=== PATIENT | male | born 1970 | race Caucasian/White ===

== ENCOUNTER 2021-11-04 18:33 | Inpatient (IN) ==
[2021-11-04 21:40] LABS: Basophils # (auto) 0.05 K/uL (0-0.2); Basophils % (auto) 0.3 %; Eosinophils # (auto) 0.05 K/uL (0-0.50); Eosinophils % (auto) 0.3 %; Hematocrit (blood only) 42.3 % (40.1-51.0); Hemoglobin 14.5 g/dl (14.0-18.0); Immature Granulocytes # (auto) 0.09 K/uL (0.00-0.02); Immature Granulocytes % (auto) 0.6 %; Lymphocytes % (auto) 11.9 %; Mean Corpuscular Hemoglobin 27.7 pg (25.0-34.0); Mean Corpuscular Hgb Conc 34.3 g/dL (32.0-36.0); Mean Corpuscular Volume 80.7 fL (80.0-100.0); Mean Platelet Volume 10.7 fL (9.4-12.4); Monocytes # (auto) 1.37 K/uL (0.24-0.82); Neutrophils # (auto) 11.82 K/uL (1.4-6.5); Neutrophils % (auto) 77.9 %; Platelet Count 288 K/uL (130-400); RDW Coefficient of Variation 13.4 % (11.5-14.5); RDW Standard Deviation 39.3 fL (36.4-46.3); Red Blood Count 5.24 M/uL (4.63-6.08); White Blood Count 15.18 K/ul (4.8-10.8)
[2021-11-04 21:48] LABS: Albumin Level 4.4 gm/dl (3.4-5.0); BUN Creatinine Ratio 10.8 (10-20); Bilirubin,Total 0.8 mg/dl (0.2-1.0); Calcium 10.3 mg/dl (8.5-10.1); Creatinine Clr Calc Pharmacy 106.2 ml/min; Est GFR (African American) 109.8 ml/min; Est GFR (Non-African American) 94.7 ml/min; Globulin 4.6 gm/dl (2.5-4.0); Potassium 4.6 mmol/L (3.5-5.1)
[2021-11-04] MEDS ORDERED: HYDROmorphone INJ 1 MG/ML SYRINGE IV STA (23:57)
[2021-11-04] MEDS ORDERED: SODIUM CHLORIDE 0.9% 1000ML 1,000 ML IV ONE (23:59)
[2021-11-05] MEDS ORDERED: ONDANSETRON INJ 2 MG/ML 2 ML VIAL IV STA (00:04)
[2021-11-05] MEDS ORDERED: VANCOMYCIN HCL 1,750 MG in SODIUM CHLORIDE 0.9% 500 ML IV ONE (00:06)
[2021-11-05] MEDS ORDERED: VANCOMYCIN CONSULT ACTIVE PRN (00:06)
--- NOTE | 2021-11-05 01:23 | History & Physical Report ---
Date of Service November 05, 2021 Assessment & Plan (1) Cellulitis of lip: Plan: Worsening since Wednesday despite being on clindamycin. - Vanc/Zosyn - Follow blood cultures - Urgent u/s of upper lip to check for abscess - OMFS consulted - NPO - Pain control (2) Diabetes: Plan: At home takes Novolog 12 - 14 units with breakfast and dinner. Had previously been on Lantus 22 units HS, but stopped that about 1 month ago. - Lantus 10 units SQ BID - Sliding scale insulin - A1c ordered (3) Hypertension: Plan: - Continue home metoprolol History of Present Illness Primary Care Provider: Ash Huggins 51yo M w/ hx of DM comes in with lip cellulitis. Had small pimple that he popped. On Wednesday, lip became more swollen and red. [facility] started him on clinda with worsening. Saw his dentist/OMFS physician who took culture but d idn't change antibiotic and has not heard back from that result. Lip still getting worse, so came to the hospital. Has been trying ice, compresses, etc without improvement. Allergies Allergy/AdvReac Type Severity Reaction Status Date / Time hydrocodone Allergy Mild Unverified 11/29/12 01:21 Home Medications Medication Instructions Recorded Confirmed Type METFORMIN HCL (GLUCOPHAGE) 1,000 mg PO BID #0 tabs 12/02/12 History ASPIRIN (ASPIRIN EC) 81 mg PO DAILY ##0 06/21/13 History Metoprolol Tartrate (Lopressor) 25 mg PO BID #0 tabs 06/21/13 History (Lopressor) Insulin Detemir (Levemir Flexpen) 56 unit subcut HS ##0 01/24/14 History Past Med/Surg History Medical History (Updated 11/05/21 @ 01:21 by Earnest Hernandez MD) Diabetes Hypertension Social History Smoking Status: Never smoker Feels Safe at Home: Yes Review of Systems Review of Systems: All systems reviewed & are unremarkable except as noted in HPI & below Physical Exam Constitutional: WD/WN, vitals as above Eyes: EOM intact bilaterally; no conjunctival abnormality ENMT: external ear and nose normal, oropharynx normal Hugely swollen upper lip with some fluctuance on the left side Neck: trachea midline, no thyromegaly normal visual inspection Respiratory: normal respiratory effort, lungs clear to auscultation no respiratory distress Cardiovascular: RRR, no murmur, no edema Gastrointestinal (Abdomen): Inspection/Auscultation: abdomen normal to inspection; abdomen not distended Musculoskeletal: no cyanosis or clubbing, extremities motor strength 5/5 Skin: no rashes, warm and dry Neurologic: moves all extremities and awake Psychiatric: Orientation: alert, oriented to person and cooperative Results & Data Results & [facility] ([facility] Vital Signs (Past 12 Hours) Vital Signs Temp Pulse Pulse Resp BP BP Pulse Ox 11/05/21 00:42 107 H 18 166/97 H 96 11/04/21 23:38 120 H 20 188/98 H 100 11/04/21 18:51 36.8 C 117 H 18 144/82 H 99 O2 Del Method 11/05/21 00:42 Room Air 11/04/21 23:38 Room Air 11/04/21 18:51 Room Air Code Status & VTE Plan VTE Prophylaxis Plan VTE Prophylaxis will be ordered: Yes PG Care Time/CCT Total # of Minutes Spent Total Time Spent with Patient: Total time spent is greater than 50% in coordination of care (as documented) at patient's floor/unit and/or counseling patient: Coding Level of Care Code 63397 Initial Inpt Care Lvl 3 Diagnoses Cellulitis of lip K13.0 Diabetes E11.9 Hypertension I10
[2021-11-05] MEDS ORDERED: DEXTROSE 50% 50 ML SYRINGE IV PRN (03:19)
[2021-11-05] MEDS ORDERED: GLUCOSE 40% GEL 15 GM TUBE PO PRN (03:19)
[2021-11-05] MEDS ORDERED: ONDANSETRON INJ 2 MG/ML 2 ML VIAL IV PRN (03:19)
[2021-11-05] MEDS ORDERED: GLUCAGON FOR INJ 1 MG VIAL SQ PRN (03:19)
[2021-11-05] MEDS ORDERED: CARBOHYDRATES FOR HYPOGLYCEMIA PO PRN (03:19)
[2021-11-05] MEDS ORDERED: GLUCOSE 10 TAB/TUBE PO PRN (03:19)
[2021-11-05] MEDS ORDERED: PIPERACILLIN/TAZOBACTAM 4.5 GM/120 ML BAG IV STA (03:31)
[2021-11-05] MEDS: LACTATED RINGER'S 1,000 ML IV SCH ×2 (03:38→12:12)
[2021-11-05] MEDS: HYDROmorphone INJ 0.5 MG/0.5 ML SYR IV PRN ×4 (03:38→20:49)
--- NOTE | 2021-11-05 06:34 | Pharmacy Report ---
Pharmacy Vanc AUC Short Note - Date of Service November 05, 2021 - Assessment & Plan Assessment 51 year old M receiving VANCOMYCIN for treatment of cellulitis of lip, pharmacy to dose vancomycin. Pt is also ordered Zosyn. Pertinent microbiologic data includes: BLCXs pending Plan Vancomycin * AUC/TSERING is the preferred PK/PD target for vancomycin * AUC guided dosing is effective and associated with decreased risk of nephrotoxicity compared to traditional trough targets * 1750mg load x 1 given overnight * Maint dose 1250mg IV Q 12 hrs is predicted to achieve target AUC/TSERING of 400- 600 mg/L.hr and may be associated with a 13 % risk of nephrotoxicity * Will check level in 24-48 hrs if therapy to continue Pharmacy will continue to follow and will adjust dose/frequency as necessary. Thank you.
--- NOTE | 2021-11-05 07:00 | Ultrasound Report ---
US soft tissue head and neck CLINICAL HISTORY: Upper lip; look for abscess COMPARISON STUDY: No previous studies for comparison. TECHNIQUE: Sonography of the upper lip at site of swelling was performed. FINDINGS: There is a 3.5 x 1.4 x 1 cm complex hypoechoic suspected collection of the upper lip with w ithout internal vascularity. There is peripheral hypervascularity. No additional fluid collections ar e identified. IMPRESSION: 3.5 x 1.4 x 1 cm complex hypoechoic focus within the upper lip. This favors a developing abscess. ACT 112: Negative or not required by law. Electronically signed by: Sánchez Ruiz M.D. 11/05/2021 6:58 AM
[2021-11-05 07:11] LABS: Hematocrit (blood only) 36.9 % (40.1-51.0); Hemoglobin 12.4 g/dl (14.0-18.0); Mean Corpuscular Hemoglobin 27.3 pg (25.0-34.0); Mean Corpuscular Hgb Conc 33.6 g/dL (32.0-36.0); Mean Corpuscular Volume 81.3 fL (80.0-100.0); Mean Platelet Volume 10.1 fL (9.4-12.4); Platelet Count 237 K/uL (130-400); RDW Coefficient of Variation 13.2 % (11.5-14.5); Red Blood Count 4.54 M/uL (4.63-6.08); White Blood Count 13.08 K/ul (4.8-10.8)
[2021-11-05 07:28] LABS: BUN Creatinine Ratio 13.3 (10-20); Creatinine Clr Calc Pharmacy 131.7 ml/min; Est GFR (African American) 123.1 ml/min; Est GFR (Non-African American) 106.2 ml/min; Magnesium 1.6 mg/dl (1.7-2.4)
[2021-11-05 07:49] LABS: Estimated Average Glucose 243 mg/dl; Hemoglobin A1C 10.1 % (4.5-5.6)
--- NOTE | 2021-11-05 08:11 | Emergency Department Note ---
Impression & Plan Acute hyponatremia, Hyperglycemia due to diabetes mellitus, Cellulitis of lip [facility] Provider Note NAME: ART BRUSH AGE: 51 SEX: M ARRIVES VIA: Walk-In INFORMANT: Patient and his brother ED PROVIDER(S): Idalmis Portillo DO CHIEF COMPLAINT: Abscess/edema to the upper lip PLAN: Disposition: Admit to the [facility] Condition: Stable MEDICAL DECISION MAKING: This is a 51-year-old male patient who is a diabetic who presents to the emergency department with significant edema to the upper lip. The patient has been treated with clindamycin but is failing outpatient treatment. He has severe pain to the upper lip. He has significant hyperglycemia and hyponatremia. He will require inpatient correction of the hyponatremia and treatment of the pain. I have discussed the case [facility] and they will evaluate for further management. Triage Nursing notes reviewed and agree with them. Additional history obtained from the patient's brother who is at the bedside Prior medical records reviewed Vital Signs: reviewed and remarkable for hypertension and tachycardia Differential diagnosis: Cellulitis of the lip; facial abscess; hyperglycemia; MRSA infection; failure of outpatient treatment ER treatment provided: IV vancomycin IV Dilaudid IV Zofran and IV normal saline Diagnostics interpreted by me: Cardiac Monitoring: Sinus tachycardia at 108 Laboratory studies: See below HPI: 51/M arrives for evaluation of swollen upper lip. Patient developed a pimple on his upper lip 5 days ago. He tried to pop it but it became infected. The whole upper lip began to swell. He was seen at [facility] and was prescribed clindamycin which did not seem to be helping. He followed up with a plastic surgeon who cultured the wound and he was awaiting the cultures and sensitivities. Patient has history of MRSA and was concerned this may be causing his infection. ROS: See above HPI for pertinent positives & negatives. A total of 10 systems reviewed and were otherwise negative. PAST MEDICAL HISTORY:Previous MRSA infections. PAST SURGICAL HISTORY:See Below FAMILY HISTORY:See Below SOCIAL HISTORY:See Below HOME MEDICATIONS:See list ALLERGIES:None according to the patient VITALS:See Below PHYSICAL EXAMINATION: HEENT: Head - normocephalic and atraumatic. Pupils are equal, round, and reactive to light. Extraocular eye muscles are intact, and sclera are anicteric. Nose - moist nasal mucosa without discharge. Mouth - moist buccal mucosa. Oropharynx is nonerythematous and there is no tonsillar exudate or edema noted. Patient has significant edema to the upper lip with a scabbed over area in the middle of the upper lip. Neck: Supple; no JVD, nuchal rigidity, cervical lymphadenopathy. Heart: Tachycardic rate and rhythm. There is a normal S1 and S2 with no murmurs, clicks, or gallops appreciated. Lungs: Clear to auscultation bilaterally with no wheezes, rales, or rhonchi. Abdomen: Soft, completely nontender, nondistended, with good bowel sounds. There are no palpable pulsatile masses or hepatosplenomegaly. There is no guarding, rigidity, or rebound noted. Extremities: No evidence of cyanosis, clubbing, or edema. There are easily palpable peripheral pulses. Skin: warm and dry with good turgor and no rashes. ED COURSE: Times/Reassessments: Patient was evaluated and had a complete history and physical. An IV lock was initiated and labs are drawn as above. The patient was treated with IV Toradol, Dilaudid, and Zofran. An order was placed for c ontinuous cardiac monitoring. The patient was in a sinus tachycardia at 108. Blood cultures were obtained. Patient was started on IV vancomycin drip. Patient was bolused with IV normal saline solution. I discussed the case with the [facility] Hospitalist. Idalmis Portillo DO Past Med/Surg History Medical History Diabetes Hypertension Social History Smoking Status: Former smoker Hx Alcohol Use: Yes Hx Substance Use: No Preferred Language: Zambian Communication Ability: Effective Mental Retardation Aide Required: No Beliefs That Will Affect Care: Voodoo Voodoo Beliefs: sikhism Current Living Situation: Other Current Living Situation Comment: girlfriend Feels Safe at Home: Yes Safety Concerns: Feels Safe At This Time Assistive Devices: None Allergies Allergies Allergy/AdvReac Type Severity Reaction Status Date / Time hydrocodone Allergy Mild Unverified 11/29/12 01:21 Home Meds Home Medications Medication Instructions Recorded Confirmed aspirin 81 mg tablet,delayed 81 mg PO DAILY 11/05/21 11/05/21 release clindamycin HCl 300 mg capsule 300 mg PO Q6 11/05/21 11/05/21 glimepiride 4 mg tablet 4 mg PO QAM 11/05/21 11/05/21 hydrocodone 10 mg-acetaminophen 1 tab PO QID PRN Pain 11/05/21 11/05/21 325 mg tablet insulin glargine 100 unit/mL (3 20 unit subcut HS 11/05/21 11/05/21 mL) subcutaneous pen (Lantus Solostar U-100 Insulin) insulin lispro 100 unit/mL See Rx Instructions .Route .COMPLEX 11/05/21 11/05/21 subcutaneous pen (Humalog KwikPen (U-100) Insulin) lisinopril 10 1 tab PO DAILY 11/05/21 11/05/21 mg-hydrochlorothiazide 12.5 mg tablet metformin 1,000 mg tablet 1,000 mg PO BIDM 11/05/21 11/05/21 omeprazole 20 mg capsule,delayed 20 mg PO DAILY 11/05/21 11/05/21 release rosuvastatin 10 mg tablet 10 mg PO DAILY 11/05/21 11/05/21 Results & Data (ED) Vital Signs Vital Signs - 24 hr 11/04/21 18:51 11/04/21 23:38 11/05/21 00:42 Temperature 36.8 C Temperature Source Temporal Artery Scan Pulse Rate 117 H Pulse Rate [Finger] 120 H 107 H Respiratory Rate 18 20 18 Respiratory Effort / Characteristics Non-Labored Respiratory Depth Normal Respiratory Pattern Regular Blood Pressure 144/82 H Blood Pressure [Right Arm] 188/98 H 166/97 H Blood Pressure Mean 102 Blood Pressure Mean [Right Arm] 128 120 Blood Pressure Position [Right Arm] Lying Pulse Oximetry 99 100 96 Oxygen Delivery Method Room Air Room Air Room Air Sepsis Recent Fever Within 48 Hours No Sepsis New/Unexplained Change in Mental Status No Sepsis Action Taken by Nursing No Action Required Laboratory Data Result diagrams: 11/05/21 07:00 11/05/21 07:00 Lab Results 11/04/21 11/04/21 11/05/21 Range/Units 21:11 21:11 00:30 WBC 15.18 H (4.8-10.8) K/ul RBC 5.24 (4.63-6.08) M/uL Hgb 14.5 (14.0-18.0) g/dl Hct 42.3 (40.1-51.0) % MCV 80.7 (80.0-100.0) fL MCH 27.7 (25.0-34.0) pg MCHC 34.3 (32.0-36.0) g/dL RDW Std Deviation 39.3 (36.4-46.3) fL RDW Coeff of Guillermo 13.4 (11.5-14.5) % Plt Count 288 (130-400) K/uL MPV 10.7 (9.4-12.4) fL Immature Gran % (Auto) 0.6 % Neut % (Auto) 77.9 % Lymph % (Auto) 11.9 % [place] % (Auto) 9.0 % Eos % (Auto) 0.3 % Baso % (Auto) 0.3 % Neut # (Auto) 11.82 H (1.4-6.5) K/uL Lymph # (Auto) 1.80 (1.2-3.4) K/uL [place] # (Auto) 1.37 H (0.24-0.82) K/uL Eos # (Auto) 0.05 (0-0.50) K/uL Baso # (Auto) 0.05 (0-0.2) K/uL Immature Gran # (Auto) 0.09 H (0.00-0.02) K/uL Sodium 127 L (136-145) mmol/L Potassium 4.6 (3.5-5.1) mmol/L Chloride 91 L (98-107) mmol/L Carbon Dioxide 25 (21-32) mmol/L Anion Gap 11 (3-11) BUN 10 (6-23) mg/dl Creatinine 0.93 (0.6-1.4) mg/dl Est Cr Clr Drug Dosing 106.2 ml/min Est GFR ( Amer) 109.8 ml/min Est GFR (Non-Af Amer) 94.7 ml/min BUN/Creatinine Ratio 10.8 (10-20) Glucose 375 H* (70-99(Fasting)) mg/dl Lactate 1.4 (0.4-2.0) mmol/L Calcium 10.3 H (8.5-10.1) mg/dl Total Bilirubin 0.8 (0.2-1.0) mg/dl AST 8 L (13-39) U/L ALT 10 (7-52) U/L Alkaline Phosphatase 88 (34-104) U/L Total Protein 9.0 H (6.0-8.3) gm/dl Albumin 4.4 (3.4-5.0) gm/dl Globulin 4.6 H (2.5-4.0) gm/dl Albumin/Globulin Ratio 1.0 (0.9-2) SARS-CoV-2, RNA, NAAT (NEGATIVE) 11/05/21 Range/Units 00:30 WBC (4.8-10.8) K/ul RBC (4.63-6.08) M/uL Hgb (14.0-18.0) g/dl Hct (40.1-51.0) % MCV (80.0-100.0) fL MCH (25.0-34.0) pg MCHC (32.0-36.0) g/dL RDW Std Deviation (36.4-46.3) fL RDW Coeff of Guillermo (11.5-14.5) % Plt Count (130-400) K/uL MPV (9.4-12.4) fL Immature Gran % (Auto) % Neut % (Auto) % Lymph % (Auto) % [place] % (Auto) % Eos % (Auto) % Baso % (Auto) % Neut # (Auto) (1.4-6.5) K/uL Lymph # (Auto) (1.2-3.4) K/uL [place] # (Auto) (0.24-0.82) K/uL Eos # (Auto) (0-0.50) K/uL Baso # (Auto) (0-0.2) K/uL Immature Gran # (Auto) (0.00-0.02) K/uL Sodium (136-145) mmol/L Potassium (3.5-5.1) mmol/L Chloride (98-107) mmol/L Carbon Dioxide (21-32) mmol/L Anion Gap (3-11) BUN (6-23) mg/dl Creatinine (0.6-1.4) mg/dl Est Cr Clr Drug Dosing ml/min Est GFR ( Amer) ml/min Est GFR (Non-Af Amer) ml/min BUN/Creatinine Ratio (10-20) Glucose (70-99(Fasting)) mg/dl Lactate (0.4-2.0) mmol/L Calcium (8.5-10.1) mg/dl Total Bilirubin (0.2-1.0) mg/dl AST (13-39) U/L ALT (7-52) U/L Alkaline Phosphatase (34-104) U/L Total Protein (6.0-8.3) gm/dl Albumin (3.4-5.0) gm/dl Globulin (2.5-4.0) gm/dl Albumin/Globulin Ratio (0.9-2) SARS-CoV-2, RNA, NAAT NEGATIVE (NEGATIVE) Administered Medications Hydromorphone HCl (Hydromorphone Inj 0.5 Mg/0.5 Ml Syr) 0.5 mg IV Q4H PRN PRN Reason: Pain Stop: 11/19/21 03:18 Last Admin: 11/05/21 13:35 Dose: 0.5 mg Documented By: Admin: 11/05/21 08:44 Dose: 0.5 mg Documented By: Admin: 11/05/21 03:38 Dose: 0.5 mg Documented By: ELLE Piperacillin Sod/Tazobactam (Sod 3.375 gm/ Dextrose) 115 mls @ 28.75 mls/hr IV Q8H [facility]; Protocol Stop: 11/12/21 07:59 Last Admin: 11/05/21 15:35 Dose: 28.8 mls/hr Documented By: Infusion: 11/05/21 13:20 Dose: 0 mls/hr Documented By: Admin: 11/05/21 09:20 Dose: 28.8 mls/hr Documented By: CONNIE Vancomycin HCl 1,250 mg/ (Sodium Chloride) 275 mls @ 200 mls/hr IV Q12H KANE Stop: 11/12/21 07:59 Last Infusion: 11/05/21 10:41 Dose: 0 mls/hr Documented By: Admin: 11/05/21 09:15 Dose: 200 mls/hr Documented By: CONNIE Insulin Aspart (Insulin Aspart Per Unit) 0 units SC ACHS KANE Stop: 12/05/21 07:29 Last Admin: 11/05/21 13:32 Dose: 9 units Documented By: EVITA Co-signed By: MANDI Admin: 11/05/21 09:30 Dose: 5 units Documented By: CONNIE Co-signed By: ARMINDA Insulin Glargine (Lantus Per Unit Charge) 10 units SQ BID KANE Stop: 12/05/21 08:59 Last Admin: 11/05/21 09:31 Dose: 10 units Documented By: CONNIE Co-signed By: ARMINDA Metoprolol Tartrate (Metoprolol Tartrate 25 Mg Tab) 25 mg PO BID KANE Stop: 12/05/21 08:59 Last Admin: 11/05/21 10:48 Dose: 25 mg Documented By: CONNIE Discontinued Medications Hydromorphone HCl (Hydromorphone Inj 1 Mg/Ml Syringe) 1 mg IV NOW STA Stop: 11/04/21 23:58 Last Admin: 11/05/21 00:27 Dose: 1 mg Documented By: ELLE Sodium Chloride (Nss 1000ml) 1,000 mls @ 999 mls/hr IV .Q1H1M ONE Stop: 11/05/21 00:59 Last Infusion: 11/05/21 01:38 Dose: 0 mls/hr Documented By: Admin: 11/05/21 00:28 Dose: 999 mls/hr Documented By: ELLE Vancomycin HCl 1,750 mg/ (Sodium Chloride) 535 mls @ 200 mls/hr IV NOW ONE Stop: 11/05/21 02:46 Last Infusion: 11/05/21 03:29 Dose: 0 mls/hr Documented By: Admin: 11/05/21 00:36 Dose: 200 mls/hr Documented By: ELLE Piperacillin Sod/Tazobactam Sod (Zosyn) 4.5 gm in 120 mls @ 240 mls/hr IV NOW STA; Protocol Stop: 11/05/21 04:00 Last Infusion: 11/05/21 04:16 Dose: 0 mls/hr Documented By: Admin: 11/05/21 03:38 Dose: 240 mls/hr Documented By: HH Lactated Ringer's (Lr) 1,000 mls @ 125 mls/hr IV .Q8H KANE Stop: 12/05/21 03:18 Last Infusion: 11/05/21 16:21 Dose: 0 mls/hr Documented By: Admin: 11/05/21 12:12 Dose: 125 mls/hr Documented By: Infusion: 11/05/21 11:39 Dose: 0 mls/hr Documented By: Admin: 11/05/21 03:38 Dose: 125 mls/hr Documented By: ELLE Magnesium Sulfate/Dextrose (Magnesium Sulfate / D5w) 1 gm in 100 mls @ 50 mls/hr IV 0915 ONE Stop: 11/05/21 11:14 Last Infusion: 11/05/21 12:51 Dose: 0 mls/hr Documented By: Admin: 11/05/21 10:48 Dose: 50 mls/hr Documented By: CONNIE Ondansetron HCl (Ondansetron Inj 2 Mg/Ml 2 Ml Vial) 4 mg IV NOW STA Stop: 11/05/21 00:05 Last Admin: 11/05/21 00:28 Dose: 4 mg Documented By: ELLE Discharge Plan Visit Data Chief Complaint: Facial Injury/Pain Stated Complaint: LIPS MAJORLY SWOLLEN ED Provider: Idalmis Portillo Discharge Problem: Acute hyponatremia, Hyperglycemia due to diabetes mellitus, Cellulitis of lip Discharge Instructions Interventions: ED Discharge Assessment Last Done: 11/05/21 03:30
[2021-11-05] MEDS: VANCOMYCIN HCL 1,250 MG in SODIUM CHLORIDE 0.9% 250 ML IV SCH ×2 (09:15→20:50)
[2021-11-05] MEDS ORDERED: MAGNESIUM SULFATE / D5W 1 GM/100 ML BAG IV ONE (09:15)
[2021-11-05] MEDS: PIPERACILLIN/TAZOBACTAM 3.375 GM in DEXTROSE 5% 100 ML IV SCH ×2 (09:20→15:35)
[2021-11-05] MEDS: INSULIN ASPART PER UNIT SC SCH ×4 (09:30→21:13)
[2021-11-05] MEDS: LANTUS PER UNIT CHARGE SQ SCH ×2 (09:31→21:13)
[2021-11-05] MEDS: METOPROLOL TARTRATE 25 MG TAB PO SCH ×2 (10:48→20:50)
--- NOTE | 2021-11-05 14:25 | Oral/Maxillofacial Consult ---
Date of Consultation November 05, 2021 Assessment & Plan (1) Facial abscess: (2) Cellulitis of lip: History of Present Illness Reason for Consultation: lip infection ? MRSA Attending Physician: Boni Whitten MD History of Present Illness K12.2 CPT 54367 Oral Maxillofacial Surgery Exam Present Complaint: Had mass pimple upper lip--he tried to drain - now lip very hard and swollen--H/O MRSA Symptoms have been ongoing since Wednesday--saw [facility] in [place] [facility] taken placed on Clindamycin --no improvement --presented to [facility] ER. HPI: 51/M arrives for evaluation of swollen upper lip. Patient developed a pimple on his upper lip 5 days ago. He tried to pop it but it became infected. The whole upper lip began to swell. He was seen at [facility] and was prescribed clindamycin which did not seem to be helping. He followed up with a plastic surgeon who cultured the wound and he was awaiting the cultures and sensitivities. Patient has history of MRSA and was concerned this may be causing his infection. Oral Exam: Finding- Grossly swollen indurated upper lip, no drainage, not fluctuant Painful No other oral issues Imaging: US soft tissue head and neck CLINICAL HISTORY: Upper lip; look for abscess TECHNIQUE: Sonography of the upper lip at site of swelling was performed. FINDINGS: There is a 3.5 x 1.4 x 1 cm complex hypoechoic suspected collection of the upper lip with without internal vascularity. There is peripheral hypervascularity. No additional fluid collections are identified. IMPRESSION: 3.5 x 1.4 x 1 cm complex hypoechoic focus within the upper lip. Thi s favors a developing abscess. Soft tissue: Grossly swollen, indurated upper lip floor of the mouth, tongue, hard/soft palate, posterior pharyngeal area all with in normal limits, Oral Care: Overall oral care is good Occlusion: Class I missing a few teeth TMJ exam: No pop, clicking, pain, good ROM, No history of TMJ injury or dysfunction Periodontal exam: Healthy gingival tissue without evidence of periodontal pathology. Head/Neck exam: Neck is supple, FROM, Able to extend and flex neck w/o difficulty, no masses, no abnormalities, no airway issues, no evidence of sleep apnea. Treatment Plan: Admit for IV antibiotics, heat, for I&D , NPO midnight to night OR PM Set up with general anesthesia in hospitall due to complexity of the procedure I reviewed the treatment plan and consent with the patient Understanding was expressed. Time was given for questions regarding the surgery, risks and post op care. Discussed alternative to treatment--procedure as planned, Do not do surgery Risks discussed: Bleeding,Pain,swelling,infection,delayed healing, nerve injury to face,lips,tongue,chin area which could be permanent (rare). Further treatment if MRSA infection. Scaring and recurrence Home care reviewed: Oral and Lip care, rinsing, follow up care with Dr Barry. diet=[id number] dental. Discussed activity level, driving/work while on Rx pain Meds. Surgery to be set up afternoon Allergies Allergy/AdvReac Type Severity Reaction Status Date / Time hydrocodone Allergy Mild Unverified 11/29/12 01:21 Home Medications Medication Instructions Recorded Confirmed Type aspirin 81 mg tablet,delayed 81 mg PO DAILY 11/05/21 11/05/21 History release clindamycin HCl 300 mg capsule 300 mg PO Q6 11/05/21 11/05/21 History glimepiride 4 mg tablet 4 mg PO QAM 11/05/21 11/05/21 History hydrocodone 10 mg-acetaminophen 1 tab PO QID PRN Pain 11/05/21 11/05/21 History 325 mg tablet insulin glargine 100 unit/mL (3 20 unit subcut HS 11/05/21 11/05/21 History mL) subcutaneous pen (Lantus Solostar U-100 Insulin) insulin lispro 100 unit/mL See Rx Instructions .Route .COMPLEX 11/05/21 11/05/21 History subcutaneous pen (Humalog KwikPen (U-100) Insulin) lisinopril 10 1 tab PO DAILY 11/05/21 11/05/21 History mg-hydrochlorothiazide 12.5 mg tablet metformin 1,000 mg tablet 1,000 mg PO BIDM 11/05/21 11/05/21 History omeprazole 20 mg capsule,delayed 20 mg PO DAILY 11/05/21 11/05/21 History release rosuvastatin 10 mg tablet 10 mg PO DAILY 11/05/21 11/05/21 History Patient History Medical History (Updated 11/05/21 @ 08:16 by Idalmis Portillo DO) Diabetes Hypertension Social History Smoking Status: Former smoker Hx Alcohol Use: Yes Hx Substance Use: No Preferred Language: Divehi Communication Ability: Effective Metallurgical Lab Technician Required: No Beliefs That Will Affect Care: Yarsani Yarsani Beliefs: temple Current Living Situation: Other Current Living Situation Comment: girlfriend Feels Safe at Home: Yes Safety Concerns: Feels Safe At This Time Assistive Devices: None Results & Data ([facility]) Vital Signs (Past 12 Hours) Vital Signs Temp Pulse Resp BP Pulse Ox O2 Del Method 11/05/21 06:49 104 H 17 164/69 H 96 Room Air 11/05/21 03:47 37.0 C 107 H 18 183/99 H 96 Room Air 11/05/21 02:33 105 H 17 155/69 H 95 Room Air PG Care Time/CCT Total # of Minutes Spent Total Time Spent with Patient: Total time spent is greater than 50% in coordination of care (as documented) at patient's floor/unit and/or counseling patient: Coding Level of Care Code 66757 Inpt Consult Level 3 Diagnoses Facial abscess L02.01 Cellulitis of lip K13.0
--- NOTE | 2021-11-05 15:57 | Hospitalist Progress Note ---
Date of Service November 05, 2021 Assessment & Plan (1) Cellulitis of lip: Plan: Worsening since Wednesday despite being on clindamycin. - Empirically on Vanc/Zosyn - Blood cultures collected and pending - U/S of upper lip appears consistent with developing abscess - OMFS consulted-appreciate assistance, plan for I&D tomorrow - NPO but diet ordered for today, will be NPO at midnight tonight - Pain control (2) Diabetes: Plan: At home takes Novolog 12 - 14 units with breakfast and dinner. Had previously been on Lantus 22 units HS, but stopped that about 1 month ago. - Lantus 10 units SQ BID - Sliding scale insulin, pharmacy tightened CF for better control - A1c ordered-elevated at 10.1% - Suspect his issue is dietary noncompliance (3) Hypertension: Plan: - Continue home metoprolol Plan Plan as outlined above. For procedure tomorrow. Follow culture data and tailor abx therapy accordingly. AM labs. Change fluids to NSS at 100 ml/hr d/t Na of 129. Magnesium supplemented. Plan to be d/w Dr. Whitten. Admission and Anticipated Discharge Date Admission Date: November 05, 2021 Subjective Patient seen on daily rounds today. He reports c/o headache and facial pain which seems only mildly controlled. He denies fever, chills chest pain, or dyspnea. He did not have tylenol ordered. He was seen by [facility] and plan is for I&D tomorrow. Review of Systems Review of Systems: All systems reviewed and are unremarkable except as noted in HPI and below. Denies fever, chills, fatigue, nasal congestion, sore throat, cough, chest pain, shortness of breath, palpitations, orthopnea, PND, abdominal pain, n/v/d, constipation, dysuria, hematuria, frequency, back pain, joint pain or swelling, easy bruising or bleeding. Physical Exam Physical Exam: GENERAL: 51 yo Well-developed, well-nourished WM. NAD. MOUTH: significant swelling of upper lip, no obvious opening or active drainage LUNGS: Clear to auscultation bilaterally. No accessory muscle use. No W/R/R. CARDIOVASCULAR: Regular rate and rhythm. ABDOMEN: Soft, non-tender and non-distended. BS normoactive x 4 quad. EXTREMITIES: No edema. Non-tender. Peripheral pulses +2/4. NEUROLOGIC: A&O x3. Nonfocal PSYCHIATRIC: Cooperative. Appropriate mood and affect. SKIN: Warm, dry, intact. Results & Data Results & Data ([facility]) Vital Signs (Past 12 Hours) Vital Signs Pulse Resp BP Pulse Ox O2 Del Method 11/05/21 15:00 104 H 19 165/90 H 94 Room Air 11/05/21 06:49 104 H 17 164/69 H 96 Room Air Laboratory Results 11/05/21 07:00 11/05/21 07:00 Diagnostic Findings Head/Neck Ultrasound 11/05/21 03:19 US soft tissue head and neck CLINICAL HISTORY: Upper lip; look for abscess COMPARISON STUDY: No previous studies for comparison. TECHNIQUE: Sonography of the upper lip at site of swelling was performed. FINDINGS: There is a 3.5 x 1.4 x 1 cm complex hypoechoic suspected collection of the upper lip with without internal vascularity. There is peripheral hypervascularity. No additional fluid collections are identified. IMPRESSION: 3.5 x 1.4 x 1 cm complex hypoechoic focus within the upper lip. This favors a developing abscess. ACT 112: Negative or not required by law. Electronically signed by: Sánchez Ruiz M.D. 11/05/2021 6:58 AM PG Care Time/CCT Total # of Minutes Spent Total Time Spent with Patient: Total time spent is greater than 50% in coordination of care (as documented) at patient's floor/unit and/or counseling patient: Coding Level of Care Code None Diagnoses Cellulitis of lip K13.0 Diabetes E11.9 Hypertension I10
--- NOTE | 2021-11-05 18:01 | Anesthesiology Consultation ---
Date of Service November 05, 2021 Assessment & Plan Chart Review Chart Review: Acceptable Risk for Surgery and Patient NOT seen in Pre Admission Testing History Surgery Operation Date: 11/06/21 13:10 Proposed Procedures p Incision and Drainage Facial Lip Cellulitis - Kirill Barry DMD Height/Weight Height: 6 ft 1 in Weight: 92 kg Allergies Allergy/AdvReac Type Severity Reaction Status Date / Time hydrocodone Allergy Mild Unverified 11/29/12 01:21 Medications Home Medications Medication Instructions Recorded Confirmed Last Taken aspirin 81 mg tablet,delayed 81 mg PO DAILY 11/05/21 11/05/21 Unknown release clindamycin HCl 300 mg capsule 300 mg PO Q6 11/05/21 11/05/21 Unknown glimepiride 4 mg tablet 4 mg PO QAM 11/05/21 11/05/21 Unknown hydrocodone 10 mg-acetaminophen 1 tab PO QID PRN Pain 11/05/21 11/05/21 Unknown 325 mg tablet insulin glargine 100 unit/mL (3 20 unit subcut HS 11/05/21 11/05/21 Unknown mL) subcutaneous pen (Lantus Solostar U-100 Insulin) insulin lispro 100 unit/mL See Rx Instructions .Route .COMPLEX 11/05/21 11/05/21 Unknown subcutaneous pen (Humalog KwikPen (U-100) Insulin) lisinopril 10 1 tab PO DAILY 11/05/21 11/05/21 Unknown mg-hydrochlorothiazide 12.5 mg tablet metformin 1,000 mg tablet 1,000 mg PO BIDM 11/05/21 11/05/21 Unknown omeprazole 20 mg capsule,delayed 20 mg PO DAILY 11/05/21 11/05/21 Unknown release rosuvastatin 10 mg tablet 10 mg PO DAILY 11/05/21 11/05/21 Unknown Active Medications Generic Name Dose Route Start Last Admin Trade Name Freq PRN Reason Stop Dose Admin Hydromorphone HCl 0.5 mg 11/05/21 03:19 11/05/21 13:35 Hydromorphone Inj 0.5 Mg/0.5 Ml Syr IV 11/19/21 03:18 0.5 mg Q4H PRN Administration Pain Piperacillin Sod/Tazobactam 115 mls @ 28.75 mls/hr 11/05/21 08:00 11/05/21 1 5:35 Sod 3.375 gm/ Dextrose IV 11/12/21 07:59 28.8 mls/hr Q8H KANE Administration Protocol Vancomycin HCl 1,250 mg/ 275 mls @ 200 mls/hr 11/05/21 08:00 11/05/21 10:41 Sodium Chloride IV 11/12/21 07:59 Infused Q12H KANE Infusion Insulin Aspart 0 units 11/05/21 07:30 11/05/21 13:32 Insulin Aspart Per Unit SC 12/05/21 07:29 9 units ACHS KANE Administration Insulin Glargine 10 units 11/05/21 09:00 11/05/21 09:31 Lantus Per Unit Charge SQ 12/05/21 08:59 10 units BID KANE Administration Metoprolol Tartrate 25 mg 11/05/21 09:00 11/05/21 10:48 Metoprolol Tartrate 25 Mg Tab PO 12/05/21 08:59 25 mg BID KANE Administration Past Medical History Medical History Diabetes Hypertension Social History Smoking Status: Former smoker Hx Alcohol Use: Yes alcohol intake frequency: a few times a month Hx Substance Use: No Physical Exam Vital Signs Last Vital Signs Temp 37.0 C 11/05/21 03:47 Pulse 104 H 11/05/21 15:00 Resp 19 11/05/21 15:00 BP 165/90 H 11/05/21 15:00 Pulse Ox 94 11/05/21 15:00 O2 Del Method 11/05/21 15:00 Testing Laboratory Results 11/05/21 07:00 11/05/21 07:00 Hemoglobin A1c 10.1 % (4.5-5.6) H 11/05/21 07:00 11/05/21 11/05/21 11/05/21 17:52 11:28 09:09 POC Glucose 262 H 254 H 262 H
[2021-11-05] MEDS: SODIUM CHLORIDE 0.9% 1000ML 1,000 ML IV SCH (18:19)
[2021-11-06] MEDS: PIPERACILLIN/TAZOBACTAM 3.375 GM in DEXTROSE 5% 100 ML IV SCH ×3 (00:08→15:58)
[2021-11-06] MEDS: SODIUM CHLORIDE 0.9% 1000ML 1,000 ML IV SCH ×2 (00:09→09:42)
[2021-11-06] MEDS: HYDROmorphone INJ 0.5 MG/0.5 ML SYR IV PRN ×5 (03:56→19:54)
[2021-11-06 07:05] LABS: Creatinine Clr Calc Pharmacy 143.1 ml/min; Est GFR (African American) 127.4 ml/min; Est GFR (Non-African American) 109.9 ml/min
[2021-11-06] MEDS: VANCOMYCIN HCL 1,250 MG in SODIUM CHLORIDE 0.9% 250 ML IV SCH ×2 (07:49→19:54)
[2021-11-06] MEDS: METOPROLOL TARTRATE 25 MG TAB PO SCH ×3 (07:51→19:55)
[2021-11-06] MEDS: INSULIN ASPART PER UNIT SC SCH ×3 (09:11→21:22)
[2021-11-06] MEDS: LANTUS PER UNIT CHARGE SQ SCH ×2 (09:11→21:21)
[2021-11-06] MEDS ORDERED: Nursing to Pharmacy Communication SCH ×2 (10:00→15:30)
[2021-11-06] MEDS ORDERED: PROPOFOL IV EMULSION 10 MG/ML 20 ML VIAL IV ONE ×2 (11:59→13:04)
[2021-11-06] MEDS ORDERED: fentaNYL citrate 100 MCG/2 ML VIAL ONE ×2 (12:00→12:55)
[2021-11-06] MEDS ORDERED: INSULIN ASPART PER UNIT SC SCH (12:00)
[2021-11-06] MEDS ORDERED: MIDAZOLAM HCL 1 MG/ML 2ML VIAL ONE (12:00)
[2021-11-06] MEDS ORDERED: LIDOCAINE/EPINEPHRINE 1.7 ML CTR ONE (12:26)
[2021-11-06] MEDS ORDERED: CHLORHEXIDINE GLUCONATE 0.12% 480 ML ONE (12:27)
--- NOTE | 2021-11-06 12:34 | History & Physical Bridge Note ---
Date of Service November 06, 2021 History & Physical Bridge Note I have examined the patient, reviewed the History & Physical and in the interval since the performance of the History & Physical I have noted the following changes of clinical significance: no changes noted COVID neg very swollen upper lip--I&D medically necessary
[2021-11-06] MEDS ORDERED: LABETALOL HCL IV 5 MG/ML 20ML IV PRN (12:35)
[2021-11-06] MEDS ORDERED: FLUMAZENIL 0.1 MG/1 ML 10 ML VIAL IV PRN (12:35)
[2021-11-06] MEDS ORDERED: PROMETHAZINE HCL 12.5 MG in SODIUM CHLORIDE 0.9% 50 ML IV PRN (12:35)
[2021-11-06] MEDS ORDERED: ATROPINE SULFATE 0.1 MG/ML 10ML SYR IV PRN (12:35)
[2021-11-06] MEDS ORDERED: ONDANSETRON INJ 2 MG/ML 2 ML VIAL IV PRN (12:35)
[2021-11-06] MEDS ORDERED: NALOXONE HCL 0.4 MG/1 ML VIAL/CARP IV PRN (12:35)
[2021-11-06] MEDS ORDERED: ePHEDrine sulfate 50 MG/ML AMP IV PRN (12:35)
[2021-11-06] MEDS ORDERED: ONDANSETRON INJ 2 MG/ML 2 ML VIAL ONE (13:04)
--- NOTE | 2021-11-06 13:37 | Operative Report ---
PG Post Operative Report Pre & Post Diagnosis Operation Date: 11/06/21 13:10 Pre-Op Diagnosis: Lip Infection Post-Op Diagnosis: Lip Infection I identified the patient and participated in the time-out.: Yes Procedure Operation Date: 11/06/21 13:10 Actual Procedures p Incision and Drainage Facial Lip Cellulitis(Not Applicable) - Kirill Barry DMD K12.2 cellulitics of the upper lip K13.0 L03.211 B95.62 mrsa infection face and upper lip CPT 23084--M&D face (Upper Lip) Surgeon Kirill Barry DMD Technology Intern none Estimated Blood Loss 4 Findings Consistent with Post-Op Diagnosis grossly swollen upper lip suspect MRSA infection Specimens Drainage from upper lip Drains 1/4 inch Pen [place] drain x 2 Anesthesia Type General Complications none Indications grossly swollen upper lip Description of Procedure K12.2 cellulitics of the upper lip K13.0 L03.211 B95.62 mrsa infection face and upper lip CPT 37108--K&D face (Upper Lip) Actual Procedures p Incision and Drainage upper lip abscess;- Kirill Barry DMD Once cleared for surgery general anesthesia was achieved, the eyes were protected by the anesthesia dept criteria. A time out was take for patient ID, antibiotics, equipment and position verification once all agreed the procedure began. Local anesthesia using Lidocaine 2%with a vasoconstrictor ( 1.8 ml per site) given into the high mucobuccal fold and base of the nose. A throat pack was placed after the oral cavity was irrigated with saline. Once a surgical level of anesthesia was obtained and the local anesthesia was given time for the blocks the surgery was started. I turned my attention to the infection which was located upper lip and infraorbital spaces. Incision and Drainage Using a 15 blade an incision was made in the midline of the upper lip and in the mucosa of the undersurface of the upper lip near the corners of the mouth. . Once the incisions were made a lot of pus extruded from the site. This drainage was cultured for anaerobic and aerobic bacteria also suspect a MRSA infection given the location and prior history. A curved hemostat was carefully placed into the infected midline until the right and left lateral incision sites was found. Bilateral Mynor 1/4 drains were placed and sutured with a 6-0 Vicryl suture to secure them in position. Some further drainage was now allowed to escape. I palpated the lip and nasal labial area area and no further drainage was expressed. The area was irrigated with at least 200 ml of NS solution and Peridex The case was now completed and I inspected the sites to insure all bleeding was controlled and drains functioning well as secure. I removed the throat pack and suctioned the throat. All instrument and sponge count was correct. the patient was allowed to awake from the anesthesia. Once full awake the anesth esia tube was removed and the patient was taken to the recovery room with all vital sign stable. The patient tolerated the surgery very well. The patient will be transferred to the floor for IV antibiotics before plans will be made for discharge. We will await results of the drainage to determine the appropriate course of continuation of antibiotic management. I will follow the patient in my office, Rx and instructions will be given upon discharge. I attest to the content of the Intraoperative Record and any orders documented therein. Any exceptions are noted below.
--- NOTE | 2021-11-06 13:55 | Anesthesiology Progress Note ---
Date of Service November 06, 2021 Anesthesia Post Procedure Vital Signs Vital Signs: Temp Pulse Pulse Resp BP Pulse Ox O2 Del Method 11/06/21 13:40 94 H 13 149/83 H 98 Oxymask 11/06/21 13:30 95 H 16 140/75 99 Oxymask 11/06/21 13:20 36.4 C L 101 H 17 149/83 H 99 Oxymask 11/06/21 12:04 36.0 C L 92 H 18 152/77 H 97 Room Air 11/06/21 11:20 37.2 C 88 16 159/81 H 94 Room Air 11/06/21 06:22 36.5 C 93 H 18 159/79 H 95 Room Air 11/05/21 22:25 38.2 C H 105 H 18 160/75 H 96 Room Air 11/05/21 19:29 113 H 20 170/75 H 94 Room Air 11/05/21 15:00 104 H 19 165/90 H 94 Room Air O2 Flow Rate 11/06/21 13:40 2 11/06/21 13:30 4 11/06/21 13:20 6 11/06/21 12:04 11/06/21 11:20 11/06/21 06:22 11/05/21 22:25 11/05/21 19:29 11/05/21 15:00 Pain Intensity Face: Pain Intensity: 20 Transfer of Care Handoff Completed per policy Notes Mental Status: alert / awake / arousable Patient Amnestic to Procedure: Yes Nausea / Vomiting: adequately controlled Pain: adequately controlled Airway Patency, RR, SpO2: stable & adequate BP & HR: stable & adequate Hydration State: stable & adequate Anesthetic Complications: no major complications apparent
[2021-11-06] MEDS: fentaNYL citrate 100 MCG/2 ML VIAL IV PRN ×4 (14:03→14:25)
--- NOTE | 2021-11-06 15:38 | Hospitalist Progress Note ---
Date of Service November 06, 2021 Assessment & Plan (1) Cellulitis of lip: Plan: Worsening since Wednesday despite being on clindamycin. - Empirically on Vanc/Zosyn - Blood cultures collected and pending - U/S of upper lip appears consistent with developing abscess - OMFS consulted-appreciate assistance, for I&D this afternoon with Dr. Barry - Continue pain control - intraoperative cultures taken and are pending - suspicious for MRSA given he carries this history, remains on Vanc/Zosyn, trough tomorrow AM (2) Diabetes: Plan: At home takes Novolog 12 - 14 units with breakfast and dinner. Had previously been on Lantus 22 units HS, but stopped that about 1 month ago. - Lantus 10 units SQ BID - Sliding scale insulin, pharmacy tightened CF for better control - A1c ordered-elevated at 10.1% - Suspect his issue is dietary noncompliance (3) Hypertension: Plan: - Continue home metoprolol Plan Continue antibiotics, await culture data and tailor abx accordingly. Advance diet as tolerated. Continue to monitor - hopefully home soon when swelling/pain improves following procedure. Repeat labs in AM. Cap IVF. Plan to be d/w Dr. Whitten. Admission and Anticipated Discharge Date Admission Date: November 05, 2021 Subjective Patient seen on daily rounds today. His upper lip swelling has worsened overnight causing more pain and difficulty talking. He is for I&D this afternoon with Dr. Barry. He otherwise has no new complaints and no issues verbalized by RN. Review of Systems Review of Systems: All systems reviewed and are unremarkable except as noted in HPI and below. Denies fever, chills, fatigue, nasal congestion, sore throat, cough, chest pain, shortness of breath, palpitations, orthopnea, PND, abdominal pain, n/v/d, constipation, dysuria, hematuria, frequency, back pain, joint pain or swelling, easy bruising or bleeding. Physical Exam Physical Exam: GENERAL: 51 yo Well-developed, well-nourished WM. NAD. MOUTH: marked swelling of upper lip, some purulent drainage noted on inner aspect of lip and some serosanguineous drainage on outer aspect LUNGS: Clear to auscultation bilaterally. No accessory muscle use. No W/R/R. CARDIOVASCULAR: Regular rate and rhythm. ABDOMEN: Soft, non-tender and non-distended. BS normoactive x 4 quad. EXTREMITIES: No edema. Non-tender. Peripheral pulses +2/4. NEUROLOGIC: A&O x3. Nonfocal PSYCHIATRIC: Cooperative. Appropriate mood and affect. SKIN: Warm, dry, intact. Results & Data Results & Data ([facility]) Vital Signs (Past 12 Hours) Vital Signs Temp Pulse Pulse Resp BP Pulse Ox O2 Del Method 11/06/21 15:11 36.9 C 98 H 14 170/73 H 92 Room Air 11/06/21 14:55 97 H 14 171/80 H 95 Room Air 11/06/21 14:40 97 H 12 168/83 H 95 Room Air 11/06/21 14:25 96 H 12 172/87 H 95 Room Air 11/06/21 14:10 94 H 20 150/81 H 95 Room Air 11/06/21 14:00 91 H 18 157/80 H 96 Room Air 11/06/21 13:40 94 H 13 149/83 H 98 Oxymask 11/06/21 13:30 95 H 16 140/75 99 Oxymask 11/06/21 13:50 36.4 C L 93 H 20 141/78 H 93 Room Air 11/06/21 13:20 36.4 C L 101 H 17 149/83 H 99 Oxymask 11/06/21 12:04 36.0 C L 92 H 18 152/77 H 97 Room Air 11/06/21 11:20 37.2 C 88 16 159/81 H 94 Room Air 11/06/21 06:22 36.5 C 93 H 18 159/79 H 95 Room Air Laboratory Results 11/05/21 07:00 11/06/21 06:19 PG Care Time/CCT Total # of Minutes Spent Total Time Spent with Patient: Total time spent is greater than 50% in coordination of care (as documented) at patient's floor/unit and/or counseling patient: Coding Level of Care Code 52014 Subseq Hosp Care Lvl 2 Diagnoses Cellulitis of lip K13.0 Diabetes E11.9 Hypertension I10
[2021-11-06] MEDS: ACETAMINOPHEN 325 MG TAB PO PRN (21:27)
[2021-11-07] MEDS: HYDROmorphone INJ 0.5 MG/0.5 ML SYR IV PRN ×4 (00:29→17:56)
[2021-11-07] MEDS: PIPERACILLIN/TAZOBACTAM 3.375 GM in DEXTROSE 5% 100 ML IV SCH ×2 (00:30→08:45)
[2021-11-07 08:01] LABS: Basophils # (auto) 0.04 K/uL (0-0.2); Basophils % (auto) 0.3 %; Eosinophils # (auto) 0.11 K/uL (0-0.50); Hemoglobin 11.8 g/dl (14.0-18.0); Immature Granulocytes % (auto) 0.9 %; Lymphocytes # (auto) 1.26 K/uL (1.2-3.4); Lymphocytes % (auto) 10.9 %; Mean Corpuscular Hemoglobin 26.9 pg (25.0-34.0); Mean Corpuscular Hgb Conc 32.8 g/dL (32.0-36.0); Mean Corpuscular Volume 82.2 fL (80.0-100.0); Mean Platelet Volume 10.5 fL (9.4-12.4); Monocytes # (auto) 1.58 K/uL (0.24-0.82); Monocytes % (auto) 13.7 %; Neutrophils # (auto) 8.46 K/uL (1.4-6.5); Neutrophils % (auto) 73.2 %; Platelet Count 270 K/uL (130-400); RDW Standard Deviation 39.2 fL (36.4-46.3); Red Blood Count 4.38 M/uL (4.63-6.08); White Blood Count 11.55 K/ul (4.8-10.8)
[2021-11-07 08:22] LABS: BUN Creatinine Ratio 10.3 (10-20); Calcium 8.8 mg/dl (8.5-10.1); Creatinine Clr Calc Pharmacy 145.2 ml/min; Est GFR (African American) 128.2 ml/min; Est GFR (Non-African American) 110.6 ml/min; Potassium 3.7 mmol/L (3.5-5.1)
[2021-11-07] MEDS: METOPROLOL TARTRATE 25 MG TAB PO SCH ×2 (08:34→21:25)
[2021-11-07] MEDS: INSULIN ASPART PER UNIT SC SCH ×4 (08:35→22:10)
[2021-11-07] MEDS: LANTUS PER UNIT CHARGE SQ SCH ×2 (08:45→22:10)
[2021-11-07] MEDS: VANCOMYCIN HCL 1,250 MG in SODIUM CHLORIDE 0.9% 250 ML IV SCH (08:51)
--- NOTE | 2021-11-07 09:16 | Oral/Maxillofacial Progress Nt ---
Date of Service November 07, 2021 Assessment & Plan Admission and Anticipated Discharge Date Admission Date: November 05, 2021 Subjective Post Op infection evaluation post op day 1 The infected area is still swollen but no active drainage. Swelling is expected from the I&D of the upper lip. No drainage is noted. Drain in place Cultures pending ? MRSA I requested that the patient continue with massage, heat and wound care. I will evaluate tomorrow hopefully C & S results will be completed. If swelling starts to go down can consider D/C on appropriate oral antibiotics. Diet as tolerated May shower Heat to upper lip. Results & Data ([facility]) Vital Signs (Past 12 Hours) Vital Signs Temp Pulse Resp BP BP Pulse Ox O2 Del Method 11/07/21 07:02 37.8 C H 109 H 20 175/90 H 93 Room Air 11/07/21 03:24 36.6 C 97 H 20 162/81 H 95 Room Air 11/06/21 22:12 38.2 C H 103 H 18 144/70 H 93 Room Air PG Care Time/CCT Total # of Minutes Spent Total Time Spent with Patient: Total time spent is greater than 50% in coordination of care (as documented) at patient's floor/unit and/or counseling patient: Coding Level of Care Code None
[2021-11-07] MEDS: PANTOprazole 40 MG TAB PO SCH (10:13)
[2021-11-07] MEDS: VANCOMYCIN HCL 2,000 MG in SODIUM CHLORIDE 0.9% 500 ML IV SCH ×2 (10:13→22:06)
--- NOTE | 2021-11-07 11:06 | Pharmacy Report ---
Pharmacy Vanc AUC Short Note - Date of Service November 07, 2021 - Assessment & Plan Assessment 51 year old M receiving Vancomycin for treatment of Lip cellulitis positive for MRSA. Patient was on Vancomycin 1250 mg IV q12h. Today is day #3 of antimicrobial therapy. A trough level was obtained today prior to 8 AM dose. Laboratory Tests 11/07/21 07:17 Random Vancomycin 5.5 L Plan Vancomycin * Above trough level is sub-therapeutic and would only achieve a AUC/TSERING of 333 mg/L.hr. * Dosing was therefore increased to Vancomycin 2000 mg (21 mg/kg) IV q12h this AM. * AUC guided dosing is effective and associated with decreased risk of nephrotoxicity compared to traditional trough targets * Above dose of 2 gm IV q12h is predicted to achieve target AUC/TSERING of 400-600 mg/L.hr and may be associated with a 8% risk of nephrotoxicity * Random level ordered for: 11/08/21 with AM labs after two doses. * Expect trough level will trend up soon with this dosing. If above goal, dosing will need to be reduced again. Pharmacy will continue to follow and will adjust dose/frequency as necessary. Thank you.
--- NOTE | 2021-11-07 15:29 | Hospitalist Progress Note ---
Date of Service November 07, 2021 Assessment & Plan (1) Cellulitis of lip: Plan: Worsening since Wednesday despite being on clindamycin. s/p I&D by Dr. Barry on 11/06 - Empirically on Vanc/Zosyn - Blood cultures collected-NGTD - U/S of upper lip appears consistent with developing abscess - OMFS consulted-appreciate assistance - Continue pain control, heat, massage as directed - intraoperative cultures taken and are pending-prelim staph, suspect MRSA, stop Zosyn - Vanco trough subtherapeutic at 5.5, spoke with pharmacy this morning and dose adjusted (2) Diabetes: Plan: At home takes Novolog 12 - 14 units with breakfast and dinner. Had previously been on Lantus 22 units HS, but stopped that about 1 month ago. - Lantus 10 units SQ BID - Sliding scale insulin, pharmacy tightened CF for better control - A1c ordered-elevated at 10.1% - Suspect his issue is dietary noncompliance (3) Hypertension: Plan: - Continue home metoprolol Plan Adjust vancomycin, stop Zosyn. Await finalized culture data to determine course of abx treatment to continue upon d/c. Hopefully can dc tomorrow after drains removed. Plan to be d/w Dr. Whitten. Admission and Anticipated Discharge Date Admission Date: November 05, 2021 Subjective Patient seen on daily rounds this morning. He is resting comfortably in bed, reports discomfort in upper lip but does feel that the swelling is improving. Denies cp or dyspnea. Tolerating oral intake. Review of Systems Review of Systems: All systems reviewed and are unremarkable except as noted in HPI and below. Denies fever, chills, fatigue, nasal congestion, sore throat, cough, chest pain, shortness of breath, palpitations, orthopnea, PND, abdominal pain, n/v/d, constipation, dysuria, hematuria, frequency, back pain, joint pain or swelling, easy bruising or bleeding. Physical Exam 2 Physical Exam: GENERAL: 51 yo Well-developed, well-nourished WM. NAD. MOUTH: swelling of upper lip with some improvement, drains in place, no active drainage visualized LUNGS: Clear to auscultation bilaterally. No accessory muscle use. No W/R/R. CARDIOVASCULAR: Regular rate and rhythm. ABDOMEN: Soft, non-tender and non-distended. BS normoactive x 4 quad. EXTREMITIES: No edema. Non-tender. Peripheral pulses +2/4. NEUROLOGIC: A&O x3. Nonfocal PSYCHIATRIC: Cooperative. Appropriate mood and affect. SKIN: Warm, dry, intact. Results & Data Results & Data ([facility]) Vital Signs (Past 12 Hours) Vital Signs Temp Pulse Pulse Resp BP BP Pulse Ox 11/07/21 15:09 36.6 C 94 H 16 127/77 95 11/07/21 11:15 37.7 C H 98 H 20 149/81 H 92 11/07/21 08:00 11/07/21 07:02 37.8 C H 109 H 20 175/90 H 93 O2 Del Method 11/07/21 15:09 Room Air 11/07/21 11:15 Room Air 11/07/21 08:00 Room Air 11/07/21 07:02 Room Air Laboratory Results 11/07/21 07:17 11/07/21 07:17 trough = 5.5 PG Care Time/CCT Total # of Minutes Spent Total Time Spent with Patient: Total time spent is greater than 50% in coordination of care (as documented) at patient's floor/unit and/or counseling patient: Coding Level of Care Code 28433 Subseq Hosp Care Lvl 2 Diagnoses Cellulitis of lip K13.0 Diabetes E11.9 Hypertension I10
[2021-11-08] MEDS: HYDROmorphone INJ 0.5 MG/0.5 ML SYR IV PRN (00:55)
[2021-11-08] MEDS: ACETAMINOPHEN 325 MG TAB PO PRN ×2 (00:56→09:03)
--- NOTE | 2021-11-08 08:24 | Oral/Maxillofacial Progress Nt ---
Date of Service November 08, 2021 Assessment & Plan Admission and Anticipated Discharge Date Admission Date: November 05, 2021 Subjective Gram Stain - Final Aerobic and Anaerobic Culture - Preliminary Staph aureus MRSA Post Op infection evaluation at 36 hours The infected area is now starting to resolve No drainage is noted. Drain was removed= today Cultures were reviewed MRSA as expected Infection is slowly responding to the I&D and antibiotics At this time the area is responding to treatment. From my perspective Gilberto may be discharged on an appropriate oral antibiotic --I requested that he continue with massage, heat and wound care. Must keep the lip moist and return for followup with Dr Barry. Results & Data ([facility]) Vital Signs (Past 12 Hours) Vital Signs Temp Pulse Resp BP Pulse Ox O2 Del Method 11/07/21 22:14 36.9 C 97 H 20 162/76 H 96 Room Air PG Care Time/CCT Total # of Minutes Spent Total Time Spent with Patient: Total time spent is greater than 50% in coordination of care (as documented) at patient's floor/unit and/or counseling patient: Coding Level of Care Code 93579 Subseq Hosp Care Lvl 1
[2021-11-08] MEDS ORDERED: VANCOMYCIN LEVEL ONE (08:30)
[2021-11-08] MEDS: METOPROLOL TARTRATE 25 MG TAB PO SCH (09:01)
[2021-11-08] MEDS: VANCOMYCIN HCL 2,000 MG in SODIUM CHLORIDE 0.9% 500 ML IV SCH (09:01)
[2021-11-08] MEDS: PANTOprazole 40 MG TAB PO SCH (09:01)
[2021-11-08] MEDS: INSULIN ASPART PER UNIT SC SCH ×2 (09:02→13:12)
[2021-11-08] MEDS: LANTUS PER UNIT CHARGE SQ SCH (09:18)
[2021-11-08 09:31] LABS: Creatinine Clr Calc Pharmacy 147.4 ml/min; Est GFR (African American) 128.9 ml/min; Est GFR (Non-African American) 111.3 ml/min
--- NOTE | 2021-11-08 09:54 | Pharmacy Report ---
Pharmacy PK ABX Note - Date of Service November 08, 2021 - Assessment and Plan Assessment 51 year old M receiving Vancomycin for treatment of Lip cellulitis positive for MRSA. Renal function stable. Day # 4 of antimicrobial therapy. Plan Dose adjusted to 2gm IV q12h yesterday. A non-steady state trough this AM was 9.5mcg/mL (~11hr level). This regimen is predicted to achieve a steady state AUC/TSERING 489mg/L.hr. * Patient is clearing vancomycin rapidly based upon PK data thus far. * Will optimize dose to 1500mg IV q8h; associated with a steady state AUC/TSERING of 550mg/L.hr and steady state trough of 14.6mg/L. * Will obtain an early random level tomorrow AM to evaluate clearance. Pharmacy will continue to follow and will adjust dose/frequency as necessary. Thank you. Pharmacy has transitioned to AUC monitoring for vancomycin. AUC/TSERING is the preferred PK/PD target and is associated with decreased risk of nephrotoxicity compared to traditional trough targets.
--- NOTE | 2021-11-08 12:37 | Discharge Summary ---
Date of Service November 08, 2021 Admission HPI Per Admitting Provider 51yo M w/ hx of DM comes in with lip cellulitis. Had small pimple that he popped. On Wednesday, lip became more swollen and red. [facility] started him on clinda with worsening. Saw his dentist/OMFS physician who took culture but didn't change antibiotic and has not heard back from that result. Lip still getting worse, so came to the hospital. Has been trying ice, compresses, etc without improvement. Principal Diagnosis Cellulitis of upper lip s/p I&D Discharge Exam GENERAL: 51 yo Well-developed, well-nourished WM. NAD. MOUTH: swelling of upper lip with some improvement, drains removed, no active drainage visualized LUNGS: Clear to auscultation bilaterally. No accessory muscle use. No W/R/R. CARDIOVASCULAR: Regular rate and rhythm. ABDOMEN: Soft, non-tender and non-distended. BS normoactive x 4 quad. EXTREMITIES: No edema. Non-tender. Peripheral pulses +2/4. NEUROLOGIC: A&O x3. Nonfocal PSYCHIATRIC: Cooperative. Appropriate mood and affect. SKIN: Warm, dry, intact. Discharge Data Allergies Allergy/AdvReac Type Severity Reaction Status Date / Time hydrocodone Allergy Mild Unverified 11/29/12 01:21 Consultations 11/05/21 00:15 ED Decision to Admit Stat 11/05/21 03:19 Consult Oromaxillofacial Surgery Routine Procedures Performed Operation Date: 11/06/21 13:10 Actual Procedures p Incision and Drainage Facial Lip Cellulitis(Not Applicable) - Kirill Barry, ALESSIO Ordered Studies Head/Neck Ultrasound 11/05/21 03:19 US soft tissue head and neck CLINICAL HISTORY: Upper lip; look for abscess COMPARISON STUDY: No previous studies for comparison. TECHNIQUE: Sonography of the upper lip at site of swelling was performed. FINDINGS: There is a 3.5 x 1.4 x 1 cm complex hypoechoic suspected collection of the upper lip with without internal vascularity. There is peripheral hypervascularity. No additional fluid collections are identified. IMPRESSION: 3.5 x 1.4 x 1 cm complex hypoechoic focus within the upper lip. This favors a developing abscess. ACT 112: Negative or not required by law. Electronically signed by: Sánchez Ruiz M.D. 11/05/2021 6:58 AM Diabetes Follow up Diabetes Follow-up Needed for HgbA1c >9% Hospital Course (1) Cellulitis of lip: Worsening since Wednesday despite being on clindamycin. s/p I&D by Dr. Barry on 11/06 - Empirically placed on Vanc/Zosyn - Blood cultures collected-NGTD - U/S of upper lip appears consistent with developing abscess - OMFS consulted-appreciate assistance - Continue pain control, heat, massage as directed - intraoperative cultures with growth of MRSA, resistance to Clindamycin, sensitive to Tetracycline and Bactrim - Vanco trough subtherapeutic at 5.5, spoke with pharmacy this morning and dose adjusted - Drains removed by Dr. Barry this AM, pt suitable for d/c at this time, will plan for 10 days of Bactrim DS as outpatient (2) Diabetes: At home takes Novolog 12 - 14 units with breakfast and dinner. Had previously been on Lantus 22 units HS, but stopped that about 1 month ago. - Lantus 10 units SQ BID - Sliding scale insulin, pharmacy tightened CF for better control - A1c ordered-elevated at 10.1% - Suspect his issue is dietary noncompliance (3) Hypertension: - Appears pt was ordered Metoprolol but takes Lisinopril with HCTZ at home, this can be resumed Plan Pt is medically and hemodynamically stable for discharge. Rx sent to pharmacy for Bactrim, he will start his first dose this evening. Continue wound care/massage/heat as instructed by Dr. Barry. Follow up with Dr. Barry as scheduled. F/U with PCP within 1 week of discharge. Plan to be d/w Dr. Whitten. Total Time Total Time Spent Total Time Spent (In Minutes): >30 minutes Discharge Plan Discharge Items Patient Disposition: Home - Self-Care Reason For Visit: LIP INFECTION Discharge Diagnosis: I&D of lip infection Activity: Resume your previous activity Lifting: Gradually increase as tolerated Bathing: No limitations Exercise/Sports: Gradually increase as tolerated Driving/Machine Use: Resume 1 day after discharge Weightbearing: Full weightbearing Non-emergency contact: Surgeon Call non-emergency contact if: your symptoms worsen, your pain is not controlled, your pain is worsening, your temperature is above 101.5 and your wound has increased drainage Follow-up/Referrals: Ash Huggins [Primary Care Provider] - Kirill Barry, DMD [Physician] - Diet: Regular Diet Texture: Easy to Chew Venkatesh Attending Provider Instructions: ADDITIONAL ACTIVITY RECOMMENDATIONS: * Lismore teeth after every meal. It is very important to keep your mouth clean to prevent infection. * Starting tonight rinse with the Peridex as directed then 2 x a day * it is very important to keep well hydrated, this prevents fever and infection * It is important to keep the lip very moist, warm compress will help soften the upper lip and promote healing. SPECIAL CARE INSTRUCTIONS: *It is not uncommon that between day 2-4 that your swelling will be at its worst this is very normal, do not be alarmed. * apply heat (hot water bottle or heating pad) for the next two days, as often as possible. * Tomorrow start rinsing your mouth with 1/2 teaspoon salt in 8 ounces warm water. This rinse should be used every 4-6 hours. * You may experience slight nausea. To prevent this, never take your medication on an empty stomach. If nauseated, take small sips of yue anyi until you feel better; then you may start on applesauce and toast. * Some swelling is common. It should gradually decrease within 4-5 days. * A certain amount of bleeding is to be expected. It is often possible to control mild oozing by placing folded gauze over the area and biting down for 30 minutes. If you are unable to control excessive bleeding, call Dr Barry at [phone] * You may experience some discomfort for a few days. If pain or swelling increases, Call Dr Barry * Return to the office for a follow up check up on: Nov 27 at 2:30 (if the swelling is not improving with in 4-5 days please call my office so I can evaluate you sooner) * office address--[address] phone # [phone] Dr Jhonny Riddle Greensman Provider Instructions: Please start antibiotics (Bactrim) tonight (11/08/21) and continue taking twice a day until gone. Pending Studies at Discharge: No Stand-Alone Forms: [facility] [employer], Smoking Cessation Medications and DC Order Prescriptions: New sulfamethoxazole-trimethoprim [Bactrim DS] 800-160 mg tablet 1 tab PO BID Qty: 10 0RF Continued metformin 1,000 mg tablet 1,000 mg PO BIDM omeprazole 20 mg capsule,delayed release(DR/EC) 20 mg PO DAILY lisinopril-hydrochlorothiazide 10-12.5 mg tablet 1 tab PO DAILY rosuvastatin 10 mg tablet 10 mg PO DAILY glimepiride 4 mg tablet 4 mg PO QAM insulin lispro [Humalog KwikPen Insulin] 100 unit/mL insulin pen See Rx Instructions .ROUTE .COMPLEX MDD 50 units Rx Instructions: 6 units subcutaneously with breakfast and 10 units with supper insulin glargine [Lantus Solostar U-100 Insulin] 100 unit/mL (3 mL) insulin pen 20 unit SUBCUT HS aspirin [Aspirin Low-Strength] 81 mg Tablet,Delayed Release (Dr/Ec) 81 mg PO DAILY hydrocodone-acetaminophen 10-325 mg tablet 1 tab PO QID PRN (Reason: Pain) Discontinued clindamycin HCl 300 mg capsule 300 mg PO Q6 Rx Instructions: ordered 11/02/21 take for 10 days Discharge Orders: Discharge Order (Routine); Ordered 11/08/21 Ordered By: Radha Nath/Other Patient Handouts: Nutrition for Wound Healing, Managing Type 2 Diabetes Admission Data Admit Date/Time: 11/05/21 01:15 Attending Provider: Boni Whitten Admit Provider: Earnest Hernandez Primary Care Provider: Ash Huggins Other Providers: Earnest Hernandez ; Kirill Barry Coding Level of Care Code D/C DAY MANAGEMENT >30 MINS Diagnoses Cellulitis of lip K13.0 Diabetes E11.9 Hypertension I10
[2021-11-08] MEDS ORDERED: VANCOMYCIN HCL 1,500 MG in SODIUM CHLORIDE 0.9% 500 ML IV SCH (18:00)
[2021-11-09] MEDS ORDERED: VANCOMYCIN LEVEL ONE (08:30)
== END 2021-11-08 15:11 | disposition home or self-care (01) | DRG 158 ==
LOC: ED 18:33 → EDINP 11-05 01:15 → SUATTDRO 11-05 01:15 → 3W 11-05 03:30

== ENCOUNTER 2024-10-12 18:25 | Inpatient (IN) ==
[2024-10-12 19:24] LABS: Hematocrit (blood only) 38.1 % (42.0-52.0); Hemoglobin 12.8 g/dl (14.0-18.0); Immature Granulocytes # (auto) 0.05 K/uL (0.01-0.20); Immature Granulocytes % (auto) 0.5 %; Mean Corpuscular Hemoglobin 27.4 pg (25.0-34.0); Mean Corpuscular Volume 81.4 fL (80.0-100.0); Platelet Count 230 K/uL (130-400); RDW Standard Deviation 37.9 fL (36.4-46.3); Red Blood Count 4.68 M/uL (4.70-6.10); White Blood Count 10.87 K/ul (4.8-10.8)
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
--- NOTE | 2024-10-12 19:50 | XRay Report ---
Clinical History: Infection 3 views of the right knee are submitted for review. Findings: There has been right leg amputation at the level of the proximal shafts of the tibia and fibula. There is no clear evidence of acute osteomyelitis No fracture or dislocation is seen. No significant arthritic changes are noted. No other osseous abnormality is identified. There are no radiopaque foreign bodies. There is chondrocalcinosis Impression: 1. Right leg amputation 2. No definite acute pathology Electronically signed by Jai Lund 10-12-2024 7:50 PM
[2024-10-12] MEDS: CEFEPIME 2000MG 2,000 MG/20 ML SYR IV STA (19:57)
[2024-10-12] MEDS: SODIUM CHLORIDE 0.9% 1,000 ML IV ONE (19:57)
[2024-10-12 20:04] LABS: Alanine Aminotransferase 12.0 U/L (7-52); Albumin Globulin Ratio 0.9 (0.9-2); Alkaline Phosphatase 78.0 U/L (34-104); Anion Gap 11.0 (3-11); Bilirubin,Total 0.7 mg/dl (0.2-1.0); Blood Urea Nitrogen 26.0 mg/dl (6-23); Calcium 9.1 mg/dl (8.6-10.3); Carbon Dioxide 22.0 mmol/L (21-32); Chloride 95.0 mmol/L (98-107); Creatinine Clr Calc Pharmacy 67.0 ml/min; Globulin 4.4 gm/dl (2.5-4.0); Glucose 373.0 mg/dl (70-99(Fasting)); Magnesium 1.4 mg/dl (1.7-2.4); Potassium 4.4 mmol/L (3.5-5.1); Sodium 128.0 mmol/L (136-145); Total Protein 8.4 gm/dl (6.0-8.3)
[2024-10-12 20:12] LABS: INR 1.0 (0.9-1.1); Partial Thromboplastin Time 26 Seconds (21-31); Prothrombin Time 10.7 Seconds (9.0-12.0)
[2024-10-12] MEDS: HYDROmorphone INJ 0.5 MG/0.5 ML SYR IV STA (20:39)
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
[2024-10-12] MEDS ORDERED: VANCOMYCIN CONSULT ACTIVE PRN (21:27)
[2024-10-12] MEDS: VANCOMYCIN HCL 2,000 MG in SODIUM CHLORIDE 0.9% 500 ML IV ONE (22:06)
--- NOTE | 2024-10-12 23:11 | Ultrasound Report ---
Exam(s): US SOFT TISSUE EXAM: US Abdomen Limited CLINICAL HISTORY: Reason for exam: R leg wound. TECHNIQUE: Real-time ultrasound of the soft tissues of the abdomen with image documentation. COMPARISON: No relevant prior studies available. FINDINGS: Soft tissues: Soft tissue edema and hyperemia. 1.3 x 3.2 x 0.6 cm collection in the lateral aspect of the knee in the region of interest. IMPRESSION: Soft tissue edema and hyperemia. 1.3 x 3.2 x 0.6 cm collection in the lateral aspect of the knee in the region of interest. Electronically signed by: Kulwant Figueredo M.D. 10/12/24 23:10 PM
[2024-10-12] MEDS ORDERED: ACETAMINOPHEN 325 MG TAB PO PRN (23:24)
[2024-10-12] MEDS ORDERED: ONDANSETRON INJ 2 MG/ML 2 ML VIAL IV PRN (23:24)
[2024-10-12] MEDS ORDERED: POLYETHYLENE (MIRALAX) 17 GM PACK PO PRN (23:24)
[2024-10-13] MEDS: SODIUM CHLORIDE 0.9% 1,000 ML IV SCH (00:05)
[2024-10-13] MEDS ORDERED: DEXTROSE 50% 50 ML SYRINGE IV PRN (00:12)
[2024-10-13] MEDS ORDERED: GLUCAGON FOR INJ 1 MG VIAL SQ PRN (00:12)
[2024-10-13] MEDS ORDERED: GLUCOSE 40% GEL 15 GM TUBE PO PRN (00:12)
[2024-10-13] MEDS ORDERED: GLUCOSE 10 TAB/TUBE PO PRN (00:12)
[2024-10-13] MEDS: LANTUS PER UNIT CHARGE SQ SCH (00:38)
[2024-10-13] MEDS: INSULIN ASPART PER UNIT CHARGE SC SCH (00:39)
[2024-10-13] MEDS: 4.5GM X1 IV ONE (04:09)
[2024-10-13 06:40] LABS: Hematocrit (blood only) 33.1 % (42.0-52.0); Hemoglobin 11.0 g/dl (14.0-18.0); Immature Granulocytes # (auto) 0.03 K/uL (0.01-0.20); Immature Granulocytes % (auto) 0.4 %; Mean Corpuscular Hemoglobin 26.9 pg (25.0-34.0); Mean Corpuscular Volume 80.9 fL (80.0-100.0); Platelet Count 198 K/uL (130-400); RDW Standard Deviation 36.8 fL (36.4-46.3); Red Blood Count 4.09 M/uL (4.70-6.10); White Blood Count 7.62 K/ul (4.8-10.8)
[2024-10-13 07:06] LABS: Anion Gap 7.0 (3-11); Blood Urea Nitrogen 17.0 mg/dl (6-23); Calcium 8.1 mg/dl (8.6-10.3); Carbon Dioxide 22.0 mmol/L (21-32); Chloride 105.0 mmol/L (98-107); Creatinine Clr Calc Pharmacy 105.3 ml/min; Glucose 204.0 mg/dl (70-99(Fasting)); Potassium 3.9 mmol/L (3.5-5.1); Sodium 134.0 mmol/L (136-145)
[2024-10-13 07:16] LABS: Hemoglobin A1C 10.2 % (4.5-5.6)
[2024-10-13] MEDS: HEPARIN SOD 5,000 UNIT/0.5 ML VIAL SQ SCH (08:04)
[2024-10-13] MEDS: PIPERACILLIN/TAZOBACTAM 4.5 GM/100 ML BAG IV SCH (10:14)
--- NOTE | 2024-10-13 10:23 | Pharmacy Report ---
Pharmacy PK ABX Note - Date of Service October 13, 2024 - Assessment and Plan Assessment 54 year old M receiving vancomycin/Zosyn for treatment of cellulitis/skin wound on stump right leg (s/p BKA in 2020). XR no acute pathology, Soft tissue ultrasound with soft tissue edema and hyperemia with collection in region of interest. Pertinent microbiologic data includes: blood cultures pending, knee wound culture with rare GPCs on gram stain. History of MRSA noted with cellulitis of lip on face culture 10/2021. Day # 1 of antimicrobial therapy. Plan Vancomycin * Loading dose: 2000 mg IV x 1 * Maintenance dose: 1250 mg IV every 12 hours * Regimen is predicted to achieve target AUC/TSERING of 400-600 mg/L.hr * Random level ordered for: 10/15/24 with AM labs Pharmacy will continue to follow and will adjust dose/frequency as necessary. Thank you. Pharmacy has transitioned to AUC monitoring for vancomycin. AUC/TSERING is the preferred PK/PD target and is associated with decreased risk of nephrotoxicity compared to traditional trough targets.
[2024-10-13] MEDS: VANCOMYCIN HCL 1,250 MG in SODIUM CHLORIDE 0.9% 250 ML IV SCH (11:35)
--- NOTE | 2024-10-13 11:49 | Electrocardiogram Report ---
Test Reason : Blood Pressure : */* mmHG Vent. Rate : 100 BPM Atrial Rate : 100 BPM P-R Int : 156 ms QRS Dur : 76 ms QT Int : 310 ms P-R-T Axes : 49 44 52 degrees QTcB Int : 399 ms Normal sinus rhythm Low voltage QRS Borderline ECG Confirmed by He Stewart ([id number]) on 10/13/2024 11:49:14 AM Referred By: REFERRED SELF Confirmed By: He Stewart
--- NOTE | 2024-10-13 13:15 | Orthopedic Consultation ---
Date of Consultation October 13, 2024 Assessment & Plan (1) Pressure ulcer of right knee: IMPRESSION: RLE Pressure Ulcer with cellulitis h/o R BKA PLAN: Continue IV ABX Do no wear prosthetic device Will order CRP and ESR Wound care consult Dressing changed today Consult Alarm Field Technician Pain control with PO meds Continue care per Hospitalist service. Will continue to follow Supervising Physician Co-Signing Physician Notes I, Dr. Fischer, saw and examined the patient with my PA. I discussed the management with my PA. I reviewed my PAs note and agree with the documented findings and attest to completing the substantive portion of medical decision making and plan of care I developed. History of Present Illness Reason for Consultation: Right lateral knee wound Requesting Physician: Laith Fischer MD Attending Physician: Brianna Jane MD History of Present Illness This 54 yo M is seen in consultation for a wound to his Right lower leg stump. Pt states he noticed an ulcerating lesion on his R lateral leg at the level that his prosthetic leg upper edge about 1 1/2 weeks ago. He states it started with a lower lesion that ulcerated and now developing a lesion above that too along with painful swelling and redness. No fevers or chills but has had decrease appetite the last few days. He states his current prosthetic is too big and rubs on the area, causing this issue, and he was measured for a new one that will not be here for another 3-4 weeks. He states once the wound started to form he did his best to care for it at home to try to avoid infection, as he has been admitted for skin infections before and required a PICC line for continued IV antibiotics in the past, notes last one was at [facility] for several days for. He states he was cleaning the wound with hydrogen peroxide and then washing it with antibiotic soap he was given after prior skin infection, then he would leave a wet cloth on it for a few hours to soak before applying an antibiotic cream. He states other than the wound and decreased appetite he feels well. Allergies Allergy/AdvReac Type Severity Reaction Status Date / Time bupropion [From Wellbutrin] AdvReac Intermediate "MAKES PT Verified 10/12/24 21:21 ANGRY" oxycodone AdvReac Nausea Verified 10/12/24 21:21 Home Medications Medication Instructions Recorded Confirmed Type insulin glargine 100 unit/mL (3 36 unit subcut HS 11/05/21 10/12/24 History mL) subcutaneous pen (Lantus Solostar U-100 Insulin) lisinopril 10 1 tab PO DAILY 11/05/21 10/12/24 History mg-hydrochlorothiazide 12.5 mg tablet metformin 1,000 mg tablet 1,000 mg PO BIDM 11/05/21 10/12/24 History omeprazole 20 mg capsule,delayed 20 mg PO DAILY 11/05/21 10/12/24 History release rosuvastatin 10 mg tablet 10 mg PO DAILY 11/05/21 10/12/24 History Patient History Social History Smoking Status: Former smoker Smoking End Date: 21 yrs ago; Hx Alcohol Use: Yes Alcohol type: beer Hx Substance Use: No Preferred Language: French Communication Ability: Effective Visual Impairment: No Limitations Clinical Social Worker Required: No Beliefs That Will Affect Care: None marital status: Single Current Living Situation: Alone Current Living Situation Comment: girlfriend How many Children do You have: 0 Other Information That Helps Us Care for You: No Feels Safe at Home: Yes Safety Concerns: Feels Safe At This Time Assistive Devices: Prosthesis and Other Assistive Devices Comment: partial dentures/reading glasses Review of Systems 2 Review of Systems: All systems reviewed & are unremarkable except as noted in Subjective Physical Exam 2 Physical Exam: Right lower leg stump: able lift easily. able to detect light sensation to touch at healed incision site. knee joint flexion beyond 90 degrees. quarter sized areas of excoriation with surrounding erythema. No warmth or fluctance. No drainage. Lines marked yesterday show recession of cellulitis. Results & Data Vital Signs (Past 12 Hours) Vital Signs Temp Pulse Resp BP Pulse Ox O2 Del Method 10/13/24 11:12 36.6 C 74 17 146/73 H 97 Room Air 10/13/24 07:09 36.7 C 72 15 126/70 94 Room Air Diagnostic Findings Laboratory Results WBC 7.62 K/ul (4.8-10.8) 10/13/24 05:49 RBC 4.09 M/uL (4.70-6.10) L 10/13/24 05:49 Hgb 11.0 g/dl (14.0-18.0) L 10/13/24 05:49 Hct 33.1 % (42.0-52.0) L 10/13/24 05:49 MCV 80.9 fL (80.0-100.0) 10/13/24 05:49 MCH 26.9 pg (25.0-34.0) 10/13/24 05:49 MCHC 33.2 g/dL (32.0-36.0) 10/13/24 05:49 RDW Std Deviation 36.8 fL (36.4-46.3) 10/13/24 05:49 RDW Coeff of Guillermo 12.7 % (11.5-14.5) 10/13/24 05:49 Plt Count 198 K/uL (130-400) 10/13/24 05:49 MPV 11.0 fL (9.4-12.4) 10/13/24 05:49 Immature Gran % (Auto) 0.4 % 10/13/24 05:49 Neut % (Auto) 61.0 % 10/13/24 05:49 Lymph % (Auto) 23.1 % 10/13/24 05:49 Hemphill % (Auto) 12.1 % 10/13/24 05:49 Eos % (Auto) 3.0 % 10/13/24 05:49 Baso % (Auto) 0.4 % 10/13/24 05:49 Neut # (Auto) 4.65 K/uL (1.40-6.50) 10/13/24 05:49 Lymph # (Auto) 1.76 K/uL (1.20-3.40) 10/13/24 05:49 Hemphill # (Auto) 0.92 K/uL (0.11-0.59) H 10/13/24 05:49 Eos # (Auto) 0.23 K/uL (0.00-0.50) 10/13/24 05:49 Baso # (Auto) 0.03 K/uL (0.00-0.20) 10/13/24 05:49 Immature Gran # (Auto) 0.03 K/uL (0.01-0.20) 10/13/24 05:49 PT 10.7 Seconds (9.0-12.0) 10/12/24 19:05 INR 1.0 (0.9-1.1) 10/12/24 19:05 APTT 26 Seconds (21-31) 10/12/24 19:05 PTT Ratio 1.0 10/12/24 19:05 Sodium 134 mmol/L (136-145) L 10/13/24 05:49 Potassium 3.9 mmol/L (3.5-5.1) 10/13/24 05:49 Chloride 105 mmol/L (98-107) 10/13/24 05:49 Carbon Dioxide 22 mmol/L (21-32) 10/13/24 05:49 Anion Gap 7 (3-11) 10/13/24 05:49 BUN 17 mg/dl (6-23) 10/13/24 05:49 Creatinine 0.98 mg/dl (0.6-1.4) D 10/13/24 05:49 Est Cr Clr Drug Dosing 105.3 ml/min 10/13/24 05:49 eGFR 91.63 10/13/24 05:49 BUN/Creatinine Ratio 17.3 (10-20) 10/13/24 05:49 Glucose 204 mg/dl (70-99(Fasting)) H 10/13/24 05:49 POC Glucose 199 mg/dl (70-99) H 10/13/24 11:24 Estimat Average Glucose 246 mg/dl 10/13/24 05:49 Hemoglobin A1c 10.2 % (4.5-5.6) H 10/13/24 05:49 Lactate 1.5 mmol/L (0.4-2.0) 10/12/24 20:47 Calcium 8.1 mg/dl (8.6-10.3) L 10/13/24 05:49 Magnesium 1.4 mg/dl (1.7-2.4) L 10/12/24 19:05 Total Bilirubin 0.7 mg/dl (0.2-1.0) 10/12/24 19:05 AST 10 U/L (13-39) L 10/12/24 19:05 ALT 12 U/L (7-52) 10/12/24 19:05 Alkaline Phosphatase 78 U/L (34-104) 10/12/24 19:05 Troponin I High Sens 4.9 pg/ml (0-20) 10/12/24 19:05 Total Protein 8.4 gm/dl (6.0-8.3) H 10/12/24 19:05 Albumin 4.0 gm/dl (3.4-5.0) 10/12/24 19:05 Globulin 4.4 gm/dl (2.5-4.0) H 10/12/24 19:05 Albumin/Globulin Ratio 0.9 (0.9-2) 10/12/24 19:05 Procalcitonin 0.15 ng/ml (0-0.5) 10/12/24 19:05 Impressions Knee X-Ray 10/12/24 19:19 Clinical History: Infection 3 views of the right knee are submitted for review. Findings: There has been right leg amputation at the level of the proximal shafts of the tibia and fibula. There is no clear evidence of acute osteomyelitis No fracture or dislocation is seen. No significant arthritic changes are noted. No other osseous abnormality is identified. There are no radiopaque foreign bodies. There is chondrocalcinosis Impression: 1. Right leg amputation 2. No definite acute pathology Electronically signed by Jai Lund 10-12-2024 7:50 PM Soft Tissue Ultrasound 10/12/24 21:24 Exam(s): US SOFT TISSUE EXAM: US Abdomen Limited CLINICAL HISTORY: Reason for exam: R leg wound. TECHNIQUE: Real-time ultrasound of the soft tissues of the abdomen with image documentation. COMPARISON: No relevant prior studies available. FINDINGS: Soft tissues: Soft tissue edema and hyperemia. 1.3 x 3.2 x 0.6 cm collection in the lateral aspect of the knee in the region of interest. IMPRESSION: Soft tissue edema and hyperemia. 1.3 x 3.2 x 0.6 cm collection in the lateral aspect of the knee in the region of interest. Electronically signed by: Kulwant Figueredo M.D. 10/12/24 23:10 PM
[2024-10-13] MEDS: MAGNESIUM SULFATE / D5W 1 GM/100 ML BAG IV SCH (13:22)
[2024-10-13] MEDS: COLLAGENASE OINT 30 GM TUBE EXT SCH (13:22)
--- NOTE | 2024-10-13 13:58 | Hospitalist Progress Note ---
Date of Service October 13, 2024 Assessment & Plan (1) Cellulitis of right leg: (2) BHARAT (acute kidney injury): (3) Diabetes mellitus type 2 with complications: Plan Pt is a 54 yo male with a past med hx of R BKA after nonhealing DM2 foot wound in 2020, DMT2 on insulin, HLD and HTN who presents to the hospital on 10/12 for R leg infection secondary to pressure sore from RLE prosthesis. # RLE cellulitis with developing abscess and skin wound /Hx of R leg BKA-x-ray right knee without evidence of OM. Ultrasound shows small fluid collection which could be an abscess. Wound culture growing Staphylococcus species and he has a history of MRSA infection. -Continue broad-spectrum antibiotics with Zosyn and IV vancomycin - Follow-up final wound cultures; follow blood cultures-NGTD -Consult orthopedic surgery to see about drainage of abscess - Continue local wound care-advised patient not to use hydrogen peroxide or cortisone cream on an open wound-ordered Santyl at wound care nurses request - Follow CBC, BMP while on antibiotics. Checking ESR and CRP as per orthopedic surgery -Advised against using current prosthetic - Pain control with Tylenol #DMT2 on insulin - pt takes 36 units of lantus HS at home (pt states he adjusted this dosing himself). HgbA1c here significantly uncontrolled at 10.2%, with hyperglycemia -Continue Lantus 18 units twice daily and tighten down NovoLog correction factor and carb ratio - Hold home metformin #Hyponatremia/hypomagnesemia- on admission sodium was 128, but corrected for glucose level on admission it was 132-135. Secondary to poor p.o. intake prior to admission. Sodium is now normalized after receiving IV fluids-magnesium low on admission and did not receive any replacement. -Give magnesium sulfate 2 g IV x 1 - Follow BMP and magnesium in the morning #BHARAT- unknown baseline, last Cr in our system was in 2021 - on admission Cr was 1.55 and now improved to normal at 0.9 after IV fluids given - Can discontinue IV fluids after second liter completed - Follow BMP #HTN-BPs mildly elevated -Holding home lisinopril-HCTZ for BHARAT but can likely resume on 10/14 VTE prophylaxis: heparin SQ Disposition-continued stay medical/surgical floor Admission and Anticipated Discharge Date Admission Date: October 12, 2024 Subjective Patient reports some pain at the site of the wound but otherwise doing well. Denies chest pain or shortness of breath, no nausea vomiting, no abdominal pains or diarrhea or constipation. No fevers or chills. He reports at home he was using hydrogen peroxide on the wound to cleanse it and then applying cortisol cream as well as triple antibiotic ointment Physical Exam Constitutional: WD/WN, vitals as above Respiratory: normal respiratory effort, lungs clear to auscultation Cardiovascular: RRR, no murmur, no edema Gastrointestinal (Abdomen): normal bowel sounds, soft, nontender, no hepatosplenomegaly Musculoskeletal: Extremities: + extremities abnormal to inspection (Right BKA) Skin: + wound (Rt post lateral thigh open woun d, surrounding erythema, purulent drainage) With surrounding induration Results & Data Results & Data Vital Signs (Past 12 Hours) Vital Signs Temp Pulse Resp BP Pulse Ox O2 Del Method 10/13/24 11:12 36.6 C 74 17 146/73 H 97 Room Air 10/13/24 07:09 36.7 C 72 15 126/70 94 Room Air Laboratory Results CBC, BMP, procalcitonin, HgbA1c, lactate, wound culture, blood cultures reviewed PG Care Time/CCT Total # of Minutes Spent Total Time Spent with Patient: Total time spent is greater than 50% in coordination of care (as documented) at patient's floor/unit and/or counseling patient: Coding Level of Care Code 81887 SUB INP/OBS CARE 235MIN Diagnoses Cellulitis of right leg L03.115 BHARTA (acute kidney injury) N17.9 Diabetes mellitus type 2 with complications E11.8
[2024-10-13] MEDS: FAMOTIDINE 20 MG TAB PO SCH (15:08)
[2024-10-14] MEDS: MELATONIN 3 MG TAB PO PRN (01:53)
[2024-10-14 06:23] LABS: Hematocrit (blood only) 31.9 % (42.0-52.0); Hemoglobin 10.7 g/dl (14.0-18.0); Immature Granulocytes # (auto) 0.03 K/uL (0.01-0.20); Immature Granulocytes % (auto) 0.5 %; Mean Corpuscular Hemoglobin 27.4 pg (25.0-34.0); Mean Corpuscular Volume 81.6 fL (80.0-100.0); Platelet Count 209 K/uL (130-400); RDW Standard Deviation 37.2 fL (36.4-46.3); Red Blood Count 3.91 M/uL (4.70-6.10); White Blood Count 5.64 K/ul (4.8-10.8)
[2024-10-14 06:47] LABS: Anion Gap 6.0 (3-11); Blood Urea Nitrogen 9.0 mg/dl (6-23); Calcium 8.5 mg/dl (8.6-10.3); Carbon Dioxide 23.0 mmol/L (21-32); Chloride 108.0 mmol/L (98-107); Creatinine Clr Calc Pharmacy 111.0 ml/min; Glucose 103.0 mg/dl (70-99(Fasting)); Magnesium 1.7 mg/dl (1.7-2.4); Potassium 3.9 mmol/L (3.5-5.1); Sodium 137.0 mmol/L (136-145)
--- NOTE | 2024-10-14 07:24 | Hospitalist Progress Note ---
Date of Service October 14, 2024 Assessment & Plan (1) Cellulitis of right leg: (2) History of below knee amputation: (3) Diabetes mellitus type 2 with complications: (4) BHARAT (acute kidney injury): (5) Hypertension: Plan Pt is a 54 yo male with a past med hx of R BKA after foot wound that got progressively worse despite medical treatments in 2020, DMT2 on insulin 18 units lantus nightly per pt, HLD and HTN who presents to the hospital on 10/12 for R leg infection. #Cellulitis and skin wound #Hx of R leg BKA - wound cx shows MRSA infection and susceptibility to vancomycin. - Blood culture is normal. - XR unremarkable, US shows Soft tissue edema and hyperemia. 1.3 x 3.2 x 0.6 cm collection. - Stop Piperacillin/Tazobactam. - Continue Vancomycin. - Ordered ESR, CRP - Orthopedics advised to continue IVABx, wound care consult and dressings daily. #Normocytic anemia - HB 12.8 on 11/12. today HB is 10.7 - Ordered Iron panel, ferritin. -Plan to make sure he follows up with his provider regarding his colonoscopy screening and need for EGD and further workup for iron deficiency on his discharge. #DMT2 on insulin - pt takes 36 units of lantus HS at home (pt states he adjusted this dosing him self). HgbA1c significantly uncontrolled here with A1c of 10.2% - will do lantus 18 units HS here + SSI -Diabetes education appreciated - Hold home metformin #Hyponatremia - on admission sodium was 128, today it's 137. - likely slightly low due to poor po intake due to decreased appetite the last few days, has a good appetite now. - am BMP #BHARAT - unknown baseline, last Cr in our system was in 2021 - on admission Cr was 1.55 , today 0.93 after giving IV fluids. #HTN - Restart HCTZ/Lisinopril, which is his home med. - Initially held D/T BHARAT and resumed today. VTE: Lovenox 40mg Dispo-continue same medical/surgical floor, likely discharge to home in 2 days after he is seen by the superintendent drilling and production on Wednesday Admission and Anticipated Discharge Date Admission Date: October 12, 2024 Supervising Physician Co-Signing Physician Notes I personally examined the patient and verified all monzon points of history and exam, discussed case, and agree with decision making with Dr. Gooden with the following additions/exceptions: S-patient feeling better today, has no complaints. Feels the leg wound and infection is improving. Denies chest pains or shortness of breath. O- Vitals Reviewed Gen: AAOx3, NAD HEENT: Anicteric sclerae, EOMI CV: RRR no mgr nl S1S2 Pulm: CTAB no wcr Abd: +BS soft NT ND no masses or hernias Ext: No edema, right BKA Skin: Right lateral posterior thigh with 3 cm open wound with purulent drainage, surrounding erythema is receding from drawn line, induration present Neuro: Full strength throughout A/P: This patient is a 54-year-old male with a past med hx of R BKA after nonhealing DM2 foot wound in 2020, DMT2 on insulin, HLD and HTN who presents to the hospital on 10/12 for R leg infection secondary to pressure sore from RLE prosthesis. # RLE cellulitis with developing abscess and skin wound /Hx of R leg BKA-x-ray right knee without evidence of OM. Ultrasound shows small fluid collection which could be an abscess. Wound culture growing MRSA - Discontinue Zosyn and continue IV vancomycin-can likely send home with doxycycline on discharge -follow blood cultures-NGTD -Consult orthopedic surgery to see about drainage of abscess-no surgery for now - Continue local wound care-advised patient not to use hydrogen peroxide or cortisone cream on an open wound-ordered Santyl at wound care nurses request - Follow CBC, BMP, ESR and CRP -Advised against using current prosthetic-awaiting orthotics to see him on Wednesday - Pain control with Tylenol #Microcytic anemia-checking iron studies in the morning - Needs GI workup as an outpatient #DMT2 on insulin - pt takes 36 units of lantus HS at home (pt states he adjusted this dosing himself). HgbA1c here significantly uncontrolled at 10.2%, with hyperglycemia -Continue Lantus 18 units twice daily and NovoLog - Hold home metformin #Hyponatremia/hypomagnesemia- on admission sodium was 128, but corrected for glucose level on admission it was 132-135. Secondary to poor p.o. intake prior to admission. Sodium is now normalized after receiving IV fluids-magnesium low on admission and was replaced and now normalized - Follow BMP and magnesium in the morning #BHARAT- unknown baseline, last Cr in our system was in 2021 - on admission Cr was 1.55 and now improved to normal at 0.9 after IV fluids given - Can discontinue IV fluids after second liter completed - Follow BMP #HTN-BPs mildly elevated - Resuming lisinopril-HCTZ which was held for BHARAT but can resume VTE prophylaxis: heparin SQ Disposition-continued stay medical/surgical floor Subjective Patient reports some pain at the site of the wound but otherwise doing well. his apetite is good. Denies chest pain or shortness of breath, no nausea vomiting, no abdominal pains or diarrhea or constipation. No fevers or chills. Review of Systems Review of Systems: Per HPI. Physical Exam Constitutional: WD/WN, vitals as above Respiratory: normal respiratory effort, lungs clear to auscultation Cardiovascular: RRR, no murmur, no edema Gastrointestinal (Abdomen): normal bowel sounds, soft, nontender, no hepatosplenomegaly Musculoskeletal: Extremities: + extremities abnormal to inspection (Right BKA) Skin: + wound (Rt post lateral thigh open woun d, surrounding erythema, purulent drainage) With surrounding induration Results & Data Results & Data Vital Signs (Past 12 Hours) Vital Signs Temp Pulse Resp BP Pulse Ox O2 Del Method 10/13/24 20:30 Room Air 10/13/24 20:30 36.8 C 78 16 165/78 H 99 Room Air Laboratory Results CBC, BMP, ESR, CRP, magnesium, blood cultures, wound culture reviewed Resident Activity Tracking Resident Involvement: Resident Care Provided Care Provided: Adult Hospital Medicine
--- NOTE | 2024-10-14 09:36 | Orthopedic Progress Note ---
Date of Service October 14, 2024 Assessment & Plan (1) Pressure ulcer of right knee: Plan: IMPRESSION: RLE Pressure Ulcer with cellulitis, MRSA h/o R BKA PLAN: Continue IV ABX Do no wear prosthetic device Weekly CBC, CRP, and ESR Wound care consult, recommended Santyl dressing changed daily Dressing changed today Consult Medical Technologist Hematology Pain control with PO meds Continue care per Hospitalist service. Will continue to follow Admission and Anticipated Discharge Date Admission Date: October 12, 2024 Subjective feeling better Physical Exam Physical Exam: RLE: distal BKA stump incision, no evidence of infection. Lateral erythema decreased in intensity and surface area. Distal quarter size wound with fibrinous material, proximal firm wound, unable to express any material, no fluctuance. Able to actively flex and extend at the knee and hip. - effusion. Results & Data Vital Signs (Past 12 Hours) Vital Signs Temp Pulse Resp BP Pulse Ox O2 Del Method 10/14/24 08:16 36.7 C 72 16 136/71 100 Room Air Laboratory Results Laboratory Results WBC 5.64 K/ul (4.8-10.8) 10/14/24 05:49 RBC 3.91 M/uL (4.70-6.10) L 10/14/24 05:49 Hgb 10.7 g/dl (14.0-18.0) L 10/14/24 05:49 Hct 31.9 % (42.0-52.0) L 10/14/24 05:49 MCV 81.6 fL (80.0-100.0) 10/14/24 05:49 MCH 27.4 pg (25.0-34.0) 10/14/24 05:49 MCHC 33.5 g/dL (32.0-36.0) 10/14/24 05:49 RDW Std Deviation 37.2 fL (36.4-46.3) 10/14/24 05:49 RDW Coeff of Guillermo 12.7 % (11.5-14.5) 10/14/24 05:49 Plt Count 209 K/uL (130-400) 10/14/24 05:49 MPV 11.1 fL (9.4-12.4) 10/14/24 05:49 Immature Gran % (Auto) 0.5 % 10/14/24 05:49 Neut % (Auto) 56.2 % 10/14/24 05:49 Lymph % (Auto) 26.6 % 10/14/24 05:49 Lane % (Auto) 11.7 % 10/14/24 05:49 Eos % (Auto) 4.3 % 10/14/24 05:49 Baso % (Auto) 0.7 % 10/14/24 05:49 Neut # (Auto) 3.17 K/uL (1.40-6.50) 10/14/24 05:49 Lymph # (Auto) 1.50 K/uL (1.20-3.40) 10/14/24 05:49 Lane # (Auto) 0.66 K/uL (0.11-0.59) H 10/14/24 05:49 Eos # (Auto) 0.24 K/uL (0.00-0.50) 10/14/24 05:49 Baso # (Auto) 0.04 K/uL (0.00-0.20) 10/14/24 05:49 Immature Gran # (Auto) 0.03 K/uL (0.01-0.20) 10/14/24 05:49 ESR 64 mm/hr (0-20) H 10/13/24 05:49 PT 10.7 Seconds (9.0-12.0) 10/12/24 19:05 INR 1.0 (0.9-1.1) 10/12/24 19:05 APTT 26 Seconds (21-31) 10/12/24 19:05 PTT Ratio 1.0 10/12/24 19:05 Sodium 137 mmol/L (136-145) 10/14/24 05:49 Potassium 3.9 mmol/L (3.5-5.1) 10/14/24 05:49 Chloride 108 mmol/L (98-107) H 10/14/24 05:49 Carbon Dioxide 23 mmol/L (21-32) 10/14/24 05:49 Anion Gap 6 (3-11) 10/14/24 05:49 BUN 9 mg/dl (6-23) 10/14/24 05:49 Creatinine 0.93 mg/dl (0.6-1.4) 10/14/24 05:49 Est Cr Clr Drug Dosing 111.0 ml/min 10/14/24 05:49 eGFR 97.58 10/14/24 05:49 BUN/Creatinine Ratio 9.7 (10-20) L 10/14/24 05:49 Glucose 103 mg/dl (70-99(Fasting)) H 10/14/24 05:49 POC Glucose 113 mg/dl (70-99) H 10/14/24 07:52 Estimat Average Glucose 246 mg/dl 10/13/24 05:49 Hemoglobin A1c 10.2 % (4.5-5.6) H 10/13/24 05:49 Lactate 1.5 mmol/L (0.4-2.0) 10/12/24 20:47 Calcium 8.5 mg/dl (8.6-10.3) L 10/14/24 05:49 Magnesium 1.7 mg/dl (1.7-2.4) 10/14/24 05:49 Total Bilirubin 0.7 mg/dl (0.2-1.0) 10/12/24 19:05 AST 10 U/L (13-39) L 10/12/24 19:05 ALT 12 U/L (7-52) 10/12/24 19:05 Alkaline Phosphatase 78 U/L (34-104) 10/12/24 19:05 Troponin I High Sens 4.9 pg/ml (0-20) 10/12/24 19:05 C-Reactive Protein 8.86 mg/dl (0-0.5) H 10/13/24 05:49 Total Protein 8.4 gm/dl (6.0-8.3) H 10/12/24 19:05 Albumin 4.0 gm/dl (3.4-5.0) 10/12/24 19:05 Globulin 4.4 gm/dl (2.5-4.0) H 10/12/24 19:05 Albumin/Globulin Ratio 0.9 (0.9-2) 10/12/24 19:05 Procalcitonin 0.15 ng/ml (0-0.5) 10/12/24 19:05 Gram Stain Final 10/12/24-2245 Gram Stain Result Rare Gram Positive Cocci No WBCs Seen Aero/Marah Cult Preliminary 10/14/24-0731 Organism 1 Staph aureus MRSA Quantity Moderate Sens Sensitivities to Follow Organism 2 Staph aureus MRSA#2 Quantity Few Sens No Sensitivities to Follow Identification and susceptibility testing have confirmed the two organisms previously reported are the same organism. No susceptibility results will be generated on the second isolate. MRSA RX M.I.C. --- --------- Clindamycin S <=0.25 Daptomycin S <=0.5 Erythromycin R >4 Linezolid S 2 Oxacillin R >2 Rifampin S <=1 Tetracycline S <=4 Trimeth/Sulfa S <=0.5/9.5 Vancomycin S 0.5 S = SENSITIVE I = INTERMEDIATE R = RESISTANT Impressions Knee X-Ray 10/12/24 19:19 Clinical History: Infection 3 views of the right knee are submitted for review. Findings: There has been right leg amputation at the level of the proximal shafts of the tibia and fibula. There is no clear evidence of acute osteomyelitis No fracture or dislocation is seen. No significant arthritic changes are noted. No other osseous abnormality is identified. There are no radiopaque foreign bodies. There is chondrocalcinosis Impression: 1. Right leg amputation 2. No definite acute pathology Electronically signed by Jai Lund 10-12-2024 7:50 PM Soft Tissue Ultrasound 10/12/24 21:24 Exam(s): US SOFT TISSUE EXAM: US Abdomen Limited CLINICAL HISTORY: Reason for exam: R leg wound. TECHNIQUE: Real-time ultrasound of the soft tissues of the abdomen with image documentation. COMPARISON: No relevant prior studies available. FINDINGS: Soft tissues: Soft tissue edema and hyperemia. 1.3 x 3.2 x 0.6 cm collection in the lateral aspect of the knee in the region of interest. IMPRESSION: Soft tissue edema and hyperemia. 1.3 x 3.2 x 0.6 cm collection in the lateral aspect of the knee in the region of interest. Electronically signed by: Kulwant Figueredo M.D. 10/12/24 23:10 PM
[2024-10-14] MEDS: LISINOPRIL/HCTZ 10/12.5MG TAB PO SCH (16:54)
--- NOTE | 2024-10-14 18:52 | Billing Data ---
Date of Service October 14, 2024 Coding Level of Care Code 15834 SUB INP/OBS CARE
[2024-10-15 05:00] LABS: Hematocrit (blood only) 34.4 % (42.0-52.0); Hemoglobin 11.2 g/dl (14.0-18.0); Immature Granulocytes # (auto) 0.04 K/uL (0.01-0.20); Immature Granulocytes % (auto) 0.6 %; Mean Corpuscular Hemoglobin 26.8 pg (25.0-34.0); Mean Corpuscular Volume 82.3 fL (80.0-100.0); Platelet Count 266 K/uL (130-400); RDW Standard Deviation 38.3 fL (36.4-46.3); Red Blood Count 4.18 M/uL (4.70-6.10); White Blood Count 6.87 K/ul (4.8-10.8)
[2024-10-15 05:13] LABS: Anion Gap 7.0 (3-11); Blood Urea Nitrogen 12.0 mg/dl (6-23); Calcium 9.5 mg/dl (8.6-10.3); Carbon Dioxide 22.0 mmol/L (21-32); Chloride 107.0 mmol/L (98-107); Creatinine Clr Calc Pharmacy 109.8 ml/min; Glucose 115.0 mg/dl (70-99(Fasting)); Iron 36.0 mcg/dl (35-175); Potassium 4.0 mmol/L (3.5-5.1); Sodium 136.0 mmol/L (136-145); Total Iron Binding Cap Calc 276.0 mcg/dl (250-450); Transferrin 197.0 mg/dl (200-360); Transferrin (FE) Percent Satur 13.0 % (20-50)
[2024-10-15 05:32] LABS: Ferritin 110.7 ng/ml (8-388)
[2024-10-15] MEDS: ENOXAPARIN INJ 40 MG/0.4 ML SYR SQ SCH (08:39)
--- NOTE | 2024-10-15 09:21 | Pharmacy Report ---
Pharmacy PK ABX Note - Date of Service October 15, 2024 - Assessment and Plan Assessment 10/15: * Day #3 of vancomycin for MRSA growing in right knee cultures. No growth in blood cultures. * Afebrile. No leukocytosis. CRP/ESR elevated still. SCr stable, 0.94 mg/dL today. * Vancomycin level assessed and therapeutic. No change necessary. 10/13: 54 year old M receiving vancomycin/Zosyn for treatment of cellulitis/skin wound on stump right leg (s/p BKA in 2020). XR no acute pathology, Soft tissue ultrasound with soft tissue edema and hyperemia with collection in region of interest. Pertinent microbiologic data includes: blood cultures pending, knee wound culture with rare GPCs on gram stain. History of MRSA noted with cellulitis of lip on face culture 10/2021. Day # 1 of antimicrobial therapy. Plan Vancomycin * Current regimen: 1250 mg IV every 12 hours * Random level obtained 10/15/24 resulted as 18.0 mcg/mL. This is predicted to achieve target AUC/TSERING of 400-600 mg/L.hr * Predicted AUC at steady state: 450 mg/L.hr * Continue 1250 mg IV every 12 hours * Repeat random level ordered for: 10/17/24 Pharmacy will continue to follow and will adjust dose/frequency as necessary. Thank you. Pharmacy has transitioned to AUC monitoring for vancomycin. AUC/TSERING is the preferred PK/PD target and is associated with decreased risk of nephrotoxicity compared to traditional trough targets.
--- NOTE | 2024-10-15 10:32 | Hospitalist Progress Note ---
Date of Service October 15, 2024 Assessment & Plan (1) Pressure ulcer of right knee: (2) Cellulitis of right leg: (3) History of below knee amputation: (4) Diabetes mellitus type 2 with complications: (5) BHARAT (acute kidney injury): Plan Pt is a 54 yo male with a past med hx of R BKA after foot wound that got progressively worse despite medical treatments in 2020, DMT2 on insulin 18 units lantus nightly per pt, HLD and HTN who presents to the hospital on 10/12 for R leg infection. Had an episode of hypoglycemia this afternoon. #Cellulitis and skin wound #Hx of R leg BKA - wound cx shows MRSA infection and susceptibility to vancomycin. - Blood culture is normal. - XR unremarkable, US shows Soft tissue edema and hyperemia. 1.3 x 3.2 x 0.6 cm collection. - Continue Vancomycin. - ESR 76 CRP 4.47 - Will see Orthotic on wednesday and can see if patient can be discharged. - Plan on discharge him on Doxycycline, has been given 2 days of Vancomycin. - Continue wound care consult and dressings daily. #Microcytic anemia - HB 12.8 on 11/12. today HB is 11.2. - Ordered transferrin 197 , sat- 13, ferritin 110.7 -Possibility of mixed MONISHA and Anemia of Chronic Disease. -Plan to make sure he follows up with his provider regarding his colonoscopy screening and need for EGD and further workup for iron deficiency on his discharge. #DMT2 on insulin - pt takes 36 units of lantus HS at home (pt states he adjusted this dosing himself). HgbA1c 11.2% today. - Patient had a hypoglycemic episode today. - Continue lantus 18 units HS here + SSI but loosened carb ratio and correction factor - Plan on Lantus 40IU HS on discharge. Also consider GLP-1 agonist as an outpatient. -Diabetes education appreciated - Hold home metformin #Hyponatremia - on admission sodium was 128, today it's 136. - likely slightly low due to poor po intake due to decreased appetite the last few days, has a good appetite now. - am BMP #BHARAT - unknown baseline, last Cr in our system was in 2021 - on admission Cr was 1.55 , today 0.94 today. #HTN - Continue HCTZ/Lisinopril, which is his home med. - Initially held D/T BHARAT and resumed yesterday. #GERD: - Continue omeprazole on discharge. - Consider follow up with his provider for possible colonoscopy or EGD for workup of both anemia and GERD. VTE: Lovenox 40mg Dispo-continue same medical/surgical floor, likely discharge to home tomorrow after he is seen by the er medical technician on Wednesday Admission and Anticipated Discharge Date Admission Date: October 12, 2024 Supervising Physician Co-Signing Physician Notes I personally examined the patient and verified all monzon points of history and exam, discussed case, and agree with decision making with Dr. Gooden with the following additions/exceptions: S-reports feeling very well, no complaints and says the pain in the leg is improving O- Vitals Reviewed Gen: AAOx3, NAD HEENT: Anicteric sclerae, EOMI CV: RRR no mgr nl S1S2 Pulm: CTAB no wcr Abd: +BS soft NT ND no masses or hernias Ext: No edema, right BKA Skin: Right lateral posterior thigh with 3 cm open wound with scant serous drainage, surrounding erythema is significantly receded from previously drawn line, induration still present directly under the wound Neuro: Full strength throughout A/P: This patient is a 54-year-old male with a past med hx of R BKA after nonhealing DM2 foot wound in 2020, DMT2 on insulin, HLD and HTN who presents to the hospital on 10/12 for R leg infection secondary to pressure sore from RLE prosthesis. # RLE cellulitis with developing abscess and skin wound /Hx of R leg BKA-x-ray right knee without evidence of OM. Ultrasound shows small fluid collection which could be an abscess. Wound culture growing MRSA - continue IV vancomycin-can likely send home with doxycycline on discharge to complete 10 to 14-day course -follow blood cultures-NGTD -Consult orthopedic surgery to see about drainage of abscess-no surgery for now - Continue local wound care-advised patient not to use hydrogen peroxide or cortisone cream on an open wound-ordered Santyl at wound care nurses request - Follow CBC, BMP, ESR and CRP-CRP improving -Advised against using current prosthetic-awaiting orthotics to see him on Wednesday - Pain control with Tylenol #Microcytic anemia-with iron studies consistent with elevated ferritin from acute phase reactant, otherwise anemia of chronic disease with possible mild iron deficiency anemia. He has had colonoscopy in the last 5 years he thinks was normal. He had an EGD many many years ago and continues to have severe GERD symptoms if he misses even 1 dose of a PPI - Needs GI workup as an outpatient to include EGD and colonoscopy and possible video capsule endoscopy if those are negative #DMT2 on insulin - pt takes 36 units of lantus HS at home (pt states he adjusted this dosing himself). HgbA1c here significantly uncontrolled at 10.2%, with hyperglycemia and now hypoglycemia -Continue Lantus but increase to 20 units twice daily and loosen NovoLog due to hypoglycemia - Hold home metformin #Hyponatremia/hypomagnesemia- on admission sodium was 128, but corrected for glucose level on admission it was 132-135. Secondary to poor p.o. intake prior to admission. Sodium is now normalized after receiving IV fluids-magnesium low on admission and was replaced and now normalized - Follow BMP in the morning #BHARAT- unknown baseline, last Cr in our system was in 2021 - on admission Cr was 1.55 and now improved to normal at 0.9 after IV fluids given - Follow BMP #HTN-BPs mildly elevated and now improved after resuming home lisinopril HCT - Continue lisinopril-HCTZ which was held for BHARAT initially VTE prophylaxis: heparin SQ Disposition-continued stay medical/surgical floor, likely discharged home tomorrow Subjective Patient had a hypoglycemic episode today afternoon, he was shaking and sweating and the glucose level was 64 and after juice intake it was 84. Patient reports some pain 5-6 at the site of the wound, relieved by the medications but otherwise doing well. His appetite is good. Denies chest pain or shortness of breath, no rash, itching, tinnitus. no bleeding from any sites, no nausea. No fevers or chills. Physical Exam Physical Exam: RLE: distal BKA stump incision, no evidence of infection. Lateral erythema decreased in intensity and surface area. Distal quarter size wound with fibrinous material, proximal firm wound, unable to express any material, no fluctuance. Able to actively flex and extend at the knee and hip. - effusion. Constitutional: WD/WN, vitals as above Eyes: PERRL, conjunctivae normal, anicteric sclerae ENMT: external ear and nose normal, oropharynx normal Neck: trachea midline, no thyromegaly Respiratory: normal respiratory effort, lungs clear to auscultation Cardiovascular: RRR, no murmur, no edema Neurologic: patellar DTR's 2+ bilat, sensation intact Psychiatric: A+Ox3, euthymic affect Genitourinary: no testicular masses, no penis abnormality Lymphatic: no cervical or axillary lymphadenopathy Results & Data Results & Data Vital Signs (Past 12 Hours) Vital Signs Temp Pulse Resp BP Pulse Ox O2 Del Method 10/15/24 06:57 36.4 C L 71 16 144/70 H 95 Room Air
--- NOTE | 2024-10-15 12:27 | Orthopedic Progress Note ---
Date of Service October 15, 2024 Assessment & Plan (1) Pressure ulcer of right knee: Plan: IMPRESSION: RLE Pressure Ulcer with cellulitis, MRSA h/o R BKA PLAN: Continue IV ABX Do not wear prosthetic device Weekly CBC, CRP, and ESR Wound care consult, recommended Santyl dressing changed daily Dressing changed today Consult Dress Shoe Inspector Pain control with PO meds Continue care per Hospitalist service. Will continue to follow Admission and Anticipated Discharge Date Admission Date: October 12, 2024 Subjective Feeling better Physical Exam Physical Exam: RLE: distal BKA stump incision, no evidence of infection. Lateral erythema decreased in intensity and surface area. Distal quarter size wound with fibrinous material (decreased fibrinous material), proximal firm wound, unable to express any material, no fluctuance. Able to actively flex and extend at the knee and hip. - effusion. Minimal serous drainage on dressing. Results & Data Vital Signs (Past 12 Hours) Vital Signs Temp Pulse Resp BP Pulse Ox O2 Del Method 10/15/24 06:57 36.4 C L 71 16 144/70 H 95 Room Air Laboratory Results Laboratory Results WBC 6.87 K/ul (4.8-10.8) 10/15/24 04:27 RBC 4.18 M/uL (4.70-6.10) L 10/15/24 04:27 Hgb 11.2 g/dl (14.0-18.0) L 10/15/24 04:27 Hct 34.4 % (42.0-52.0) L 10/15/24 04:27 MCV 82.3 fL (80.0-100.0) 10/15/24 04:27 MCH 26.8 pg (25.0-34.0) 10/15/24 04:27 MCHC 32.6 g/dL (32.0-36.0) 10/15/24 04:27 RDW Std Deviation 38.3 fL (36.4-46.3) 10/15/24 04:27 RDW Coeff of Guillermo 12.7 % (11.5-14.5) 10/15/24 04:27 Plt Count 266 K/uL (130-400) 10/15/24 04:27 MPV 11.3 fL (9.4-12.4) 10/15/24 04:27 Immature Gran % (Auto) 0.6 % 10/15/24 04:27 Neut % (Auto) 51.9 % 10/15/24 04:27 Lymph % (Auto) 33.0 % 10/15/24 04:27 Camp % (Auto) 9.6 % 10/15/24 04:27 Eos % (Auto) 4.5 % 10/15/24 04:27 Baso % (Auto) 0.4 % 10/15/24 04:27 Neut # (Auto) 3.56 K/uL (1.40-6.50) 10/15/24 04:27 Lymph # (Auto) 2.27 K/uL (1.20-3.40) 10/15/24 04:27 Camp # (Auto) 0.66 K/uL (0.11-0.59) H 10/15/24 04:27 Eos # (Auto) 0.31 K/uL (0.00-0.50) 10/15/24 04:27 Baso # (Auto) 0.03 K/uL (0.00-0.20) 10/15/24 04:27 Immature Gran # (Auto) 0.04 K/uL (0.01-0.20) 10/15/24 04:27 ESR 76 mm/hr (0-20) H 10/15/24 04:27 PT 10.7 Seconds (9.0-12.0) 10/12/24 19:05 INR 1.0 (0.9-1.1) 10/12/24 19:05 APTT 26 Seconds (21-31) 10/12/24 19:05 PTT Ratio 1.0 10/12/24 19:05 Sodium 136 mmol/L (136-145) 10/15/24 04:27 Potassium 4.0 mmol/L (3.5-5.1) 10/15/24 04:27 Chloride 107 mmol/L (98-107) 10/15/24 04:27 Carbon Dioxide 22 mmol/L (21-32) 10/15/24 04:27 Anion Gap 7 (3-11) 10/15/24 04:27 BUN 12 mg/dl (6-23) 10/15/24 04:27 Creatinine 0.94 mg/dl (0.6-1.4) 10/15/24 04:27 Est Cr Clr Drug Dosing 109.8 ml/min 10/15/24 04:27 eGFR 96.33 10/15/24 04:27 BUN/Creatinine Ratio 12.8 (10-20) 10/15/24 04:27 Glucose 115 mg/dl (70-99(Fasting)) H 10/15/24 04:27 POC Glucose 113 mg/dl (70-99) H 10/15/24 11:27 Estimat Average Glucose 246 mg/dl 10/13/24 05:49 Hemoglobin A1c 10.2 % (4.5-5.6) H 10/13/24 05:49 Lactate 1.5 mmol/L (0.4-2.0) 10/12/24 20:47 Calcium 9.5 mg/dl (8.6-10.3) 10/15/24 04:27 Magnesium 1.7 mg/dl (1.7-2.4) 10/14/24 05:49 Iron 36 mcg/dl (35-175) 10/15/24 04:27 TIBC 276 mcg/dl (250-450) 10/15/24 04:27 Transferrin 197 mg/dl (200-360) L 10/15/24 04:27 Transferrin % Sat 13 % (20-50) L 10/15/24 04:27 Ferritin 110.7 ng/ml (8-388) 10/15/24 04:27 Total Bilirubin 0.7 mg/dl (0.2-1.0) 10/12/24 19:05 AST 10 U/L (13-39) L 10/12/24 19:05 ALT 12 U/L (7-52) 10/12/24 19:05 Alkaline Phosphatase 78 U/L (34-104) 10/12/24 19:05 Troponin I High Sens 4.9 pg/ml (0-20) 10/12/24 19:05 C-Reactive Protein 4.47 mg/dl (0-0.5) H 10/15/24 04:27 Total Protein 8.4 gm/dl (6.0-8.3) H 10/12/24 19:05 Albumin 4.0 gm/dl (3.4-5.0) 10/12/24 19:05 Globulin 4.4 gm/dl (2.5-4.0) H 10/12/24 19:05 Albumin/Globulin Ratio 0.9 (0.9-2) 10/12/24 19:05 Procalcitonin 0.15 ng/ml (0-0.5) 10/12/24 19:05 Random Vancomycin 18.0 mcg/ml (10-20) 10/15/24 04:27 Impressions Knee X-Ray 10/12/24 19:19 Clinical History: Infection 3 views of the right knee are submitted for review. Findings: There has been right leg amputation at the level of the proximal shafts of the tibia and fibula. There is no clear evidence of acute osteomyelitis No fracture or dislocation is seen. No significant arthritic changes are noted. No other osseous abnormality is identified. There are no radiopaque foreign bodies. There is chondrocalcinosis Impression: 1. Right leg amputation 2. No definite acute pathology Electronically signed by Jai Lund 10-12-2024 7:50 PM Soft Tissue Ultrasound 10/12/24 21:24 Exam(s): US SOFT TISSUE EXAM: US Abdomen Limited CLINICAL HISTORY: Reason for exam: R leg wound. TECHNIQUE: Real-time ultrasound of the soft tissues of the abdomen with image documentation. COMPARISON: No relevant prior studies available. FINDINGS: Soft tissues: Soft tissue edema and hyperemia. 1.3 x 3.2 x 0.6 cm collection in the lateral aspect of the knee in the region of interest. IMPRESSION: Soft tissue edema and hyperemia. 1.3 x 3.2 x 0.6 cm collection in the lateral aspect of the knee in the region of interest. Electronically signed by: Kulwant Figueredo M.D. 10/12/24 23:10 PM
[2024-10-15] MEDS: CARBOHYDRATES FOR HYPOGLYCEMIA PO PRN (15:21)
--- NOTE | 2024-10-15 17:50 | Billing Data ---
Date of Service October 15, 2024 Coding Level of Care Code 21875 SUB INP/OBS CARE
[2024-10-15] MEDS: LANTUS PER UNIT CHARGE SQ SCH (22:00)
[2024-10-16 06:10] LABS: Hematocrit (blood only) 30.1 % (42.0-52.0); Hemoglobin 10.2 g/dl (14.0-18.0); Immature Granulocytes # (auto) 0.05 K/uL (0.01-0.20); Immature Granulocytes % (auto) 0.7 %; Mean Corpuscular Hemoglobin 27.6 pg (25.0-34.0); Mean Corpuscular Volume 81.4 fL (80.0-100.0); Platelet Count 268 K/uL (130-400); RDW Standard Deviation 37.1 fL (36.4-46.3); Red Blood Count 3.70 M/uL (4.70-6.10); White Blood Count 7.37 K/ul (4.8-10.8)
[2024-10-16 06:23] LABS: Anion Gap 6.0 (3-11); Blood Urea Nitrogen 12.0 mg/dl (6-23); Calcium 9.4 mg/dl (8.6-10.3); Carbon Dioxide 27.0 mmol/L (21-32); Chloride 105.0 mmol/L (98-107); Creatinine Clr Calc Pharmacy 114.7 ml/min; Glucose 69.0 mg/dl (70-99(Fasting)); Potassium 3.7 mmol/L (3.5-5.1); Sodium 138.0 mmol/L (136-145)
--- NOTE | 2024-10-16 10:15 | Orthopedic Progress Note ---
Date of Service October 16, 2024 Assessment & Plan (1) Pressure ulcer of right knee: Plan: IMPRESSION: RLE Pressure Ulcer with cellulitis, MRSA h/o R BKA PLAN: Continue IV ABX Wound cultures grew MRSA Do not wear prosthetic device Weekly CBC, CRP, and ESR Wound care consult, recommended Santyl dressing changed daily Dressing changed today Consult [employer] Spray Unit Adjuster Pain control with PO meds Continue care per Hospitalist service. Will continue to follow Admission and Anticipated Discharge Date Admission Date: October 12, 2024 Supervising Physician Co-Signing Physician Notes I, Dr. Fischer, saw and examined the patient with my PA. I discussed the management with my PA. I reviewed my PAs note and agree with the documented findings and attest to completing the substantive portion of medical decision making and plan of care I developed. Subjective This 54-year-old male seen today for follow-up of the wound to his right lower stump from his skin being rubbed by his prosthetic device. Patient states he is doing fairly well today. He states that he was told he does have MRSA infection in the wound. He states that the Optifoam is being changed on a daily basis. He denies fever, chills, sweats, nausea, vomiting, diarrhea. He states he has been able to get around with use of walker. Review of Systems 2 Review of Systems: All systems reviewed & are unremarkable except as noted in Subjective Physical Exam 2 Physical Exam: Right lower leg stump: able lift easily. able to detect light sensation to touch at healed incision site. knee joint flexion beyond 120 degrees. quarter sized areas of excoriation with surrounding erythema. No warmth or fluctuance. No drainage. Lines marked yesterday show recession of cellulitis. Results & Data Vital Signs (Past 12 Hours) Vital Signs Temp Pulse Resp BP Pulse Ox O2 Del Method 10/16/24 07:24 36.6 C 82 15 153/79 H 97 Room Air Diagnostic Findings Laboratory Results WBC 7.37 K/ul (4.8-10.8) 10/16/24 05:33 RBC 3.70 M/uL (4.70-6.10) L 10/16/24 05:33 Hgb 10.2 g/dl (14.0-18.0) L 10/16/24 05:33 Hct 30.1 % (42.0-52.0) L 10/16/24 05:33 MCV 81.4 fL (80.0-100.0) 10/16/24 05:33 MCH 27.6 pg (25.0-34.0) 10/16/24 05:33 MCHC 33.9 g/dL (32.0-36.0) 10/16/24 05:33 RDW Std Deviation 37.1 fL (36.4-46.3) 10/16/24 05:33 RDW Coeff of Guillermo 12.6 % (11.5-14.5) 10/16/24 05:33 Plt Count 268 K/uL (130-400) 10/16/24 05:33 MPV 10.7 fL (9.4-12.4) 10/16/24 05:33 Immature Gran % (Auto) 0.7 % 10/16/24 05:33 Neut % (Auto) 53.6 % 10/16/24 05:33 Lymph % (Auto) 30.9 % 10/16/24 05:33 [place] % (Auto) 10.4 % 10/16/24 05:33 Eos % (Auto) 3.9 % 10/16/24 05:33 Baso % (Auto) 0.5 % 10/16/24 05:33 Neut # (Auto) 3.94 K/uL (1.40-6.50) 10/16/24 05:33 Lymph # (Auto) 2.28 K/uL (1.20-3.40) 10/16/24 05:33 [place] # (Auto) 0.77 K/uL (0.11-0.59) H 10/16/24 05:33 Eos # (Auto) 0.29 K/uL (0.00-0.50) 10/16/24 05:33 Baso # (Auto) 0.04 K/uL (0.00-0.20) 10/16/24 05:33 Immature Gran # (Auto) 0.05 K/uL (0.01-0.20) 10/16/24 05:33 ESR 76 mm/hr (0-20) H 10/15/24 04:27 PT 10.7 Seconds (9.0-12.0) 10/12/24 19:05 INR 1.0 (0.9-1.1) 10/12/24 19:05 APTT 26 Seconds (21-31) 10/12/24 19:05 PTT Ratio 1.0 10/12/24 19:05 Sodium 138 mmol/L (136-145) 10/16/24 05:33 Potassium 3.7 mmol/L (3.5-5.1) 10/16/24 05:33 Chloride 105 mmol/L (98-107) 10/16/24 05:33 Carbon Dioxide 27 mmol/L (21-32) 10/16/24 05:33 Anion Gap 6 (3-11) 10/16/24 05:33 BUN 12 mg/dl (6-23) 10/16/24 05:33 Creatinine 0.90 mg/dl (0.6-1.4) 10/16/24 05:33 Est Cr Clr Drug Dosing 114.7 ml/min 10/16/24 05:33 eGFR 101.49 10/16/24 05:33 BUN/Creatinine Ratio 13.3 (10-20) 10/16/24 05:33 Glucose 69 mg/dl (70-99(Fasting)) L 10/16/24 05:33 POC Glucose 145 mg/dl (70-99) H 10/16/24 07:11 Estimat Average Glucose 246 mg/dl 10/13/24 05:49 Hemoglobin A1c 10.2 % (4.5-5.6) H 10/13/24 05:49 Lactate 1.5 mmol/L (0.4-2.0) 10/12/24 20:47 Calcium 9.4 mg/dl (8.6-10.3) 10/16/24 05:33 Magnesium 1.7 mg/dl (1.7-2.4) 10/14/24 05:49 Iron 36 mcg/dl (35-175) 10/15/24 04:27 TIBC 276 mcg/dl (250-450) 10/15/24 04:27 Transferrin 197 mg/dl (200-360) L 10/15/24 04:27 Transferrin % Sat 13 % (20-50) L 10/15/24 04:27 Ferritin 110.7 ng/ml (8-388) 10/15/24 04:27 Total Bilirubin 0.7 mg/dl (0.2-1.0) 10/12/24 19:05 AST 10 U/L (13-39) L 10/12/24 19:05 ALT 12 U/L (7-52) 10/12/24 19:05 Alkaline Phosphatase 78 U/L (34-104) 10/12/24 19:05 Troponin I High Sens 4.9 pg/ml (0-20) 10/12/24 19:05 C-Reactive Protein 4.47 mg/dl (0-0.5) H 10/15/24 04:27 Total Protein 8.4 gm/dl (6.0-8.3) H 10/12/24 19:05 Albumin 4.0 gm/dl (3.4-5.0) 10/12/24 19:05 Globulin 4.4 gm/dl (2.5-4.0) H 10/12/24 19:05 Albumin/Globulin Ratio 0.9 (0.9-2) 10/12/24 19:05 Procalcitonin 0.15 ng/ml (0-0.5) 10/12/24 19:05 Random Vancomycin 18.0 mcg/ml (10-20) 10/15/24 04:27 Impressions Knee X-Ray 10/12/24 19:19 Clinical History: Infection 3 views of the right knee are submitted for review. Findings: There has been right leg amputation at the level of the proximal shafts of the tibia and fibula. There is no clear evidence of acute osteomyelitis No fracture or dislocation is seen. No significant arthritic changes are noted. No other osseous abnormality is identified. There are no radiopaque foreign bodies. There is chondrocalcinosis Impression: 1. Right leg amputation 2. No definite acute pathology Electronically signed by Jai Lund 10-12-2024 7:50 PM Soft Tissue Ultrasound 10/12/24 21:24 Exam(s): US SOFT TISSUE EXAM: US Abdomen Limited CLINICAL HISTORY: Reason for exam: R leg wound. TECHNIQUE: Real-time ultrasound of the soft tissues of the abdomen with image documentation. COMPARISON: No relevant prior studies available. FINDINGS: Soft tissues: Soft tissue edema and hyperemia. 1.3 x 3.2 x 0.6 cm collection in the lateral aspect of the knee in the region of interest. IMPRESSION: Soft tissue edema and hyperemia. 1.3 x 3.2 x 0.6 cm collection in the lateral aspect of the knee in the region of interest. Electronically signed by: Kulwant Figeuredo M.D. 10/12/24 23:10 PM
[2024-10-16 11:51] VITALS: BP 153/77; PULSE 77; RESP 16; TEMP 98.1; O2SAT 96
--- NOTE | 2024-10-16 13:08 | Discharge Summary ---
Discharge Summary Date of Service October 16, 2024 Principal Dx & Hospital Course #1 = Principal Diagnosis (1) Pressure ulcer of right knee: (2) Cellulitis of right leg: (3) History of below knee amputation: (4) Diabetes mellitus type 2 with complications: (5) BHARAT (acute kidney injury): Plan Pt is a 54 yo male with a past med hx of R BKA after foot wound that got progressively worse despite medical treatments in 2020, DMT2 on insulin 18 units lantus nightly per pt, HLD and HTN who presents to the hospital on 10/12 for R leg infection. Had an episode of hypoglycemia this afternoon. #Cellulitis and skin wound /Hx of R leg BKA WC: MRSA susceptible to both vanco & doxy BC neg x 48 hrs XR negative. US: soft tissue edema & hyperemia. 1.3x3.2x0.6cm collection CRP downtrending to 4.47. CBC w/o leukocytosis. BMP stable. Discussed w/ orthotics - does not require a consult but requires a prosthetics consult which is not in our facility. Discussed w/ pt and he has an upcoming appt. w/ his prosthetists this week. Doxycycline BID x 10 days on discharge to complete treatment Ortho consulted --> recommend against wearing prosthetic until wound is healed. Discussed w/ ortho 10/16. Wound care: clean w/ saline daily & apply santyl, 2x2 & Optifoam. #Microcytic anemia HB 12.8 on 11/12. today HB is 10.2 transferrin 197 , sat- 13, ferritin 110.7 Possibility of mixed MONISHA and Anemia of Chronic Disease. Plan to make sure he follows up with his provider regarding his colonoscopy screening and need for EGD and further workup for iron deficiency on his discharge. #DMT2 on insulin pt takes 36 units of lantus HS at home (pt states he adjusted this dosing himself). HgbA1c 11.2% today. Discussed w/ pharmacy that 36 units Lantus @ home + Metformin okay to resume at discharge. Follow up w/ PCP for insulin adjustments @ to discuss GLP-1 agonist. #Hyponatremia - resolved Na 138 (admission 128) Secondary to poor PO intake but appetite has resumed. #BHARAT - resolved unknown baseline, last Cr in our system was in 2021 - on admission Cr was 1.55 , today 0.90 today. #HTN Continue HCTZ/Lisinopril, which is his home med. #GERD: Continue omeprazole on discharge. Consider follow up with his provider for possible colonoscopy or EGD for workup of both anemia and GERD. Discharged home 10/16. Admission HPI Per Admitting Provider Pt is a 54 yo male with a past med hx of R BKA after foot wound that got progressively worse despite medical treatments in 2020, DMT2 on insulin 36 units lantus nightly per pt, HLD and HTN who presents to the hospital on 10/12 for R leg infection. Pt states he noticed an ulcerating lesion on his R lateral leg at the level that his prosthetic leg upper edge about 1 1/2 weeks ago. He states it started with a lower lesion that ulcerated and now developing a lesion above that too along with painful swelling and redness. No fevers or chills but has had decrease appetite the last few days. He states his current prosthetic is too big and rubs on the area, causing this issue, and he was measured for a new one that will not be here for another 3-4 weeks. He states once the wound started to form he did his best to care for it at home to try to avoid infection, as he has been admitted for skin infections before and required a PICC line for continued IV antibiotics in the past, notes last one was at [facility] for several days for. He states he was cleaning the wound with hydrogen peroxide and then washing it with antibiotic soap he was given after prior skin infection, then he would leave a wet cloth on it for a few hours to soak before applying an antibiotic cream. He states other than the wound and decreased appetite he feels well. 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 Discharge Exam Constitutional WD/WN, vitals as above Eyes PERRL, conjunctivae normal, anicteric sclerae Respiratory normal respiratory effort Musculoskeletal R BKA w/ bandage in place on lateral side of leg. Neurologic PERRL, EOMI, accommodation nl, no face palsy, no dysarthria Psychiatric A+Ox3, euthymic affect Discharge Plan Discharge Items Patient Disposition: Home - Self-Care Reason For Visit: LEG WOUND Discharge Diagnosis: right leg cellulitis Condition on Discharge: Good Activity: Resume your previous activity Non-emergency contact: Primary Care Provider Call non-emergency contact if: you have any medication questions, your symptoms worsen and you have a fever Follow-up/Referrals: Ash Huggins [Primary Care Provider] - (TRIED TO ASSIST YOU IN MAKING A HOSPITAL FOLLOW UP PCP APPOINTMENT; HOWEVER, THE OFFICE IS CLOSED. PLEASE CONTACT YOUR PRIMARY CARE PHYSICIAN AND MAKE AN APPOINTMENT IN 7-10 DAYS.) Diet: Carb Consistent or DM2 Addtl Attending Provider Instructions: Mr. Frances, You were recently hospitalized for a wound on your right extremity. You were found to have MRSA cellulitis. You were treated appropriately with IV antibiotics. Please see recommendations below regarding your discharge. Please take Doxycycline twice daily for the next 10 days. Your first dose will be this evening, 10/16. You may take with food to avoid GI upset. For your leg wound: clean with saline daily. Cover with thick layer of Santyl. Then cover with 2x2 and secure OPtifoam bandage. - Please change daily. Please continue metformin and Lantus 36 units daily at home. Please follow up with your PCP for dose adjustments if necessary for your Diabetes. Please follow up with your prosthetists outpatient. - it is recommended to avoid prosthetic devices until your wound is completely healed. Please use Tylenol 1000mg every 8 hours as needed for pain. Please use Oxycodone 5mg every 4 hours as needed for severe pain (8,9,10 on pain scale). Please resume the remainder of your medications unless stated otherwise below. Please follow up with your PCP within 1-2 weeks of discharge for further care. Best of luck! Radha Brooke PA-C Pending Studies at Discharge: No Stand-Alone Forms: My [facility] Smart Cube, Smoking Cessation Medications and DC Order Prescriptions: New Santyl 250 unit/gram Ointment 1 applic EXT DAILY Qty: 30 0RF doxycycline hyclate 100 mg capsule 100 mg PO BID 10 Days Qty: 20 0RF oxycodone 5 mg tablet 5 mg PO Q4H PRN (Reason: pain (scale score 8-10)) Qty: 14 0RF Continued metformin 1,000 mg tablet 1,000 mg PO BIDM omeprazole 20 mg capsule,delayed release(DR/EC) 20 mg PO DAILY lisinopril-hydrochlorothiazide 10-12.5 mg tablet 1 tab PO DAILY rosuvastatin 10 mg tablet 10 mg PO DAILY insulin glargine [Lantus Solostar U-100 Insulin] 100 unit/mL (3 mL) insulin pen 36 unit SUBCUT HS Discharge Orders: Discharge Order (Routine); Ordered 10/16/24 Ordered By: Radha Nath/Other Patient Handouts: Cellulitis Dc Admission Data Admit Date/Time: 10/12/24 21:35 Attending Provider: Jose Evans Admit Provider: Shanae Payne Primary Care Provider: Ash Huggins Other Providers: Nuno Bedoya; Laith Fischer Other Interventions: Discharge Summary Assessment (RN) Last Done: 10/16/24 12:56 Hospital Stay Data Consultations 10/12/24 20:09 ED Decision to Admit Stat 10/13/24 11:59 Consult Orthopedic Surgery Routine Diagnostic Imagining Performed 10/12/24 21:24 soft tissue ext ltd Routine Pending Results Patient Have Any Pending Studies at Discharge: No Discharge Instructions Given to Patient (Per Discharging Provider) Gavin Talley were recently hospitalized for a wound on your right extremity. You were fo und to have MRSA cellulitis. You were treated appropriately with IV antibiotics. Please see recommendations below regarding your discharge. Please take Doxycycline twice daily for the next 10 days. Your first dose will be this evening, 10/16. You may take with food to avoid GI upset. For your leg wound: clean with saline daily. Cover with thick layer of Santyl. Then cover with 2x2 and secure OPtifoam bandage. - Please change daily. Please continue metformin and Lantus 36 units daily at home. Please follow up with your PCP for dose adjustments if necessary for your Diabetes. Please follow up with your prosthetists outpatient. - it is recommended to avoid prosthetic devices until your wound is completely healed. Please use Tylenol 1000mg every 8 hours as needed for pain. Please use Oxycodone 5mg every 4 hours as needed for severe pain (8,9,10 on pain scale). Please resume the remainder of your medications unless stated otherwise below. Please follow up with your PCP within 1-2 weeks of discharge for further care. Best of luck! Radha Brooke PA-C Total Time Total Time Spent Total Time Spent (In Minutes): 55 Total Time Includes: Examination of the Patient, Discharge Planning, Medication Reconciliation and Communication With Other Providers Coding Level of Care Code 43643 INP/OBS DISCH >30 MIN Diagnoses Pressure ulcer of right knee L89.899 Cellulitis of right leg L03.115 History of below knee amputation Z89.519 Diabetes mellitus type 2 with complications E11.8 BHARAT (acute kidney injury) N17.9
[2024-10-17] MEDS ORDERED: LANTUS PER UNIT CHARGE SQ SCH (09:00)
--- NOTE | 2024-10-18 18:43 | Billing Data ---
Date of Service October 12, 2024 Coding Level of Care Code 95267 INT INP/OBS CARE
== END 2024-10-16 13:36 | disposition home or self-care (01) | DRG 603 ==
LOC: ED 18:25 → SUATTDRO 21:35 → 3E 21:35
DX: E11.622 Type 2 diabetes mellitus with other skin ulcer; L89.890 Pressure ulcer of other site, unstageable; N17.9 Acute kidney failure, unspecified; I10 Essential (primary) hypertension; E87.1 Hypo-osmolality and hyponatremia; Z88.8 Allergy status to other drugs, medicaments and biological substances; B95.62 Methicillin resistant Staphylococcus aureus infection as the cause of diseases classified elsewhere; D50.9 Iron deficiency anemia, unspecified; E83.42 Hypomagnesemia; Z79.84 Long term (current) use of oral hypoglycemic drugs; Z87.891 Personal history of nicotine dependence; K21.9 Gastro-esophageal reflux disease without esophagitis; E11.65 Type 2 diabetes mellitus with hyperglycemia; Z89.511 Acquired absence of right leg below knee; L03.115 Cellulitis of right lower limb; E11.649 Type 2 diabetes mellitus with hypoglycemia without coma; Z79.899 Other long term (current) drug therapy; Z88.5 Allergy status to narcotic agent; E78.5 Hyperlipidemia, unspecified; Z79.4 Long term (current) use of insulin